=== PATIENT | female | born 1980 | race Caucasian/White ===

== ENCOUNTER 2022-08-23 09:51 | Inpatient (IN) ==
[2022-08-23] MEDS ORDERED: CEFEPIME 2,000 MG/20 ML VIAL IV STA (10:11)
[2022-08-23] MEDS ORDERED: SODIUM CHLORIDE 0.9% 1000ML 2,000 ML IV ONE (10:11)
[2022-08-23] MEDS ORDERED: ONDANSETRON INJ 2 MG/ML 2 ML VIAL IV STA (10:14)
--- NOTE | 2022-08-23 10:17 | Emergency Department Note ---
Impression & Plan Altered mental status, DKA (diabetic ketoacidosis), Hyperglycemia, Hypothermia, Acute dehydration ED Provider Note NAME: XAVI BOUCHER AGE: 41 SEX: F : 1980 ARRIVES VIA: Ambulance INFORMANT: [Patient][] ED PROVIDER(S): [Francisco Evans MD] CHIEF COMPLAINT: Altered mental state HISTORY OF PRESENT ILLNESS: The patient is a 41-year-old female with diabetes. She was in the hospital last month for DKA. She began feeling unwell about 5 days ago and then 4 days ago. She has been weak and complaining of body pain. Today she vomited and she was also noted to be confused. No fever or respiratory complaints. She is drinking water trying to stay hydrated. She is moving her urine without burning or difficulty. No diarrhea. No fever reported. The patient is a poor historian, she seems a bit confused. Her is the primary historian. In route to the hospital, she received about 3 to 400 cc of IV saline. EMS felt she was mottled. PMHx/PSHx: See Below SOCIAL HISTORY: See Below. PHYSICAL EXAM: GENERAL: Patient is in mild distress, moaning at times. Seems in pain. HEENT: No acute trauma, normocephalic atraumatic, mucous membranes dry, no nasal congestion. NECK: No stridor, no adenopathy, no meningismus, trachea is midline. LUNGS: Clear to auscultation bilaterally, no wheeze, no rhonchi, breath sounds equal. HEART: Without murmurs gallops or rubs, regular rate and rhythm. ABDOMEN: Soft, nontender, bowel sounds positive, no peritonitis. EXTREMITIES: No cyanosis or edema, full range of motion of all the joints without pain or difficulty, no signs for acute trauma. NEUROLOGIC: Moving all extremities, follows commands, somewhat confused. SKIN: No rash, no jaundice, no diaphoresis. There is skin mottling on her knees and lower extremities noted. Skin is cool to the touch. DIFFERENTIAL DIAGNOSIS: Sepsis or bacteremia, DKA, dehydration, renal or liver failure, intracranial bleeding, UTI, medication reaction/overdose, among others. EMERGENCY DEPARTMENT COURSE/PROCEDURES: Prior/Outside records reviewed: EMS notes. Critical Care Note: I have personally spent 51 minutes of critical care time in the direct management of this patient. This includes bedside care, interpretation of diagnostic studies, and testing, discussion with consultants, patient, and family members, and other required patient management activities. This 51 minutes is in excess of all separately billable procedures. MEDICAL DECISION MAKING: There is a moderate leukocytosis, this would be consistent with infection or the stress of her presentation. There is a normal hemoglobin. Platelet count slightly elevated. No coagulopathy. VBG does show an acidosis with a pH less than 7. Renal panel testing shows a low CO2 consistent with the acidosis. Sodium was low. Potassium was normal. Glucose was elevated at around 300. Lactic acid level was not elevated making severe sepsis less likely. No concerning liver enzyme elevation. Cardiac enzyme testing x1 was not consistent with acute cardiac injury. Procalcitonin level was not elevated making serious bacterial infection less likely. Urinalysis showed 4+ ketones. No infection. Urine tox was positive for ecstasy-this positive finding may actually be a contaminant from her psychiatric meds. COVID test returned negative. Chest film did not show pneumonia or CHF per my review. Brain CT showed no acute bleed or mass effect. On exam, the patient was confused, hypothermic. She had mottling of her skin. Her skin was cool to the touch. The patient was aggressively managed. She by work-up appeared to be in DKA. The patient was given 2 L of IV saline. She was placed on maintenance fluids with potassium. She received IV Zofran for nausea. She was placed on an insulin drip. She received IV cefepime for empiric antibiotic coverage. I spoke with the patient and the patient's . Hospitalization is clearly indicated. Patient does appear to be in DKA, this has led to her acidosis and confusion. The patient was placed on the Mike hugger to help with the hypothermia. I did speak with the case management team, the on-call hospitalist was counseled. The patient is going to be admitted to the ICU given the extent of the acidosis. DISPOSITION: Patient's presentation and findings warrant a hospital stay. Past Med/Surg History Medical History Anxiety Bipolar 2 disorder Chronic pain History of tobacco abuse HTN (hypertension) T2DM (type 2 diabetes mellitus) Surgical History No pertinent past surgical history Family History Other Family history unobtainable Social History Smoking Status: Former smoker Hx Alcohol Use: No Hx Substance Use: Yes Non-Prescribed Medications: Marijuana Substance Use Type Other:: occasional Preferred Language: Malay Communication Ability: Impaired [employer] Required: No Beliefs That Will Affect Care: None marital status: Current Living Situation: Spouse Other Information That Helps Us Care for You: No Feels Safe at Home: Yes Safety Concerns: Feels Safe At This Time Assistive Devices: Other Assistive Devices Comment: Glasses at home Allergies Allergies Allergy/AdvReac Type Severity Reaction Status Date / Time No Known Allergies Allergy Unverified 08/23/22 15:41 Home Meds Home Medications Medication Instructions Recorded Confirmed atomoxetine 100 mg capsule 100 mg PO DAILY 08/23/22 08/23/22 atorvastatin 20 mg tablet 20 mg PO DAILY 08/23/22 08/23/22 bupropion HCl 200 mg tablet,12 hr 200 mg PO DAILY 08/23/22 08/23/22 sustained-release dulaglutide 3 mg/0.5 mL 3 mg subcut WK 08/23/22 08/23/22 subcutaneous pen injector (Trulicity) empagliflozin 25 mg tablet 25 mg PO DAILY 08/23/22 08/23/22 (Jardiance) glimepiride 2 mg tablet 2 mg PO DAILY 08/23/22 08/23/22 lamotrigine 200 mg tablet 200 mg PO DAILY 08/23/22 08/23/22 levonorgestrel 0.15 mg-ethinyl 1 tab PO DAILY 08/23/22 08/23/22 estradiol 0.03 mg tablet ([place] (28)) sertraline 100 mg tablet 300 mg PO DAILY 08/23/22 08/23/22 Results & Data (ED) Vital Signs Vital Signs - 24 hr 08/23/22 10:20 08/23/22 10:11 08/23/22 09:58 Temperature 34.8 C L Temperature Source Rectal Pulse Rate 98 H 102 H 100 H Pulse Rate from SpO2 Sensor 102 H Respiratory Rate 26 H 16 Respiratory Effort / Characteristics Non-Labored Spontaneous Respiratory Depth Normal Blood Pressure 106/56 L Blood Pressure Mean 72 Pulse Oximetry 99 72 L Oxygen Delivery Method Room Air Sepsis Recent Fever Within 48 Hours No Sepsis New/Unexplained Change in Mental Status No Sepsis Action Taken by Nursing Physician Notified 08/23/22 10:00 08/23/22 10:17 08/23/22 10:17 Temperature Temperature Source Pulse Rate 101 H 99 H Pulse Rate from SpO2 Sensor 100 H 99 H Respiratory Rate 14 17 Respiratory Effort / Characteristics Respiratory Depth Blood Pressure 86/65 L Blood Pressure Mean 68 Pulse Oximetry 100 100 Oxygen Delivery Method Sepsis Recent Fever Within 48 Hours Sepsis New/Unexplained Change in Mental Status Sepsis Action Taken by Nursing 08/23/22 10:23 08/23/22 10:23 08/23/22 10:30 Temperature Temperature Source Pulse Rate 100 H Pulse Rate from SpO2 Sensor 100 H Respiratory Rate 16 Respiratory Effort / Characteristics Respiratory Depth Blood Pressure 97/58 L 96/74 L Blood Pressure Mean 82 76 Pulse Oximetry 100 Oxygen Delivery Method Sepsis Recent Fever Within 48 Hours Sepsis New/Unexplained Change in Mental Status Sepsis Action Taken by Nursing 08/23/22 10:30 08/23/22 11:00 08/23/22 11:00 Temperature Temperature Source Pulse Rate 99 H 103 H Pulse Rate from SpO2 Sensor 99 H 103 H Respiratory Rate 24 23 Respiratory Effort / Characteristics Respiratory Depth Blood Pressure 115/73 Blood Pressure Mean 103 Pulse Oximetry 100 100 Oxygen Delivery Method Sepsis Recent Fever Within 48 Hours Sepsis New/Unexplained Change in Mental Status Sepsis Action Taken by Nursing 08/23/22 11:15 08/23/22 11:15 08/23/22 11:30 Temperature Temperature Source Pulse Rate 102 H Pulse Rate from SpO2 Sensor 102 H Respiratory Rate 16 Respiratory Effort / Characteristics Respiratory Depth Blood Pressure 106/64 98/73 L Blood Pressure Mean 74 85 Pulse Oximetry 100 Oxygen Delivery Method Sepsis Recent Fever Within 48 Hours Sepsis New/Unexplained Change in Mental Status Sepsis Action Taken by Nursing 08/23/22 11:30 08/23/22 10:36 Temperature Temperature Source Pulse Rate 106 H Pulse Rate from SpO2 Sensor 106 H Respiratory Rate 16 Respiratory Effort / Characteristics Respiratory Depth Blood Pressure Blood Pressure Mean Pulse Oximetry 100 98 Oxygen Delivery Method Room Air Sepsis Recent Fever Within 48 Hours Sepsis New/Unexplained Change in Mental Status Sepsis Action Taken by Custodial Medications Current Medication List: was personally reviewed by me Laboratory Data Attestation: I reviewed the patient's lab results. 08/23/22 10:17 08/23/22 14:32 Lab Results 08/23/22 08/23/22 08/23/22 Range/Units 10:04 10:15 10:15 WBC (4.8-10.8) K/ul RBC (4.20-5.40) M/uL Hgb (12.0-16.0) g/dl Hct (37.0-47.0) % MCV (80.0-100.0) fL MCH (25.0-34.0) pg MCHC (32.0-36.0) g/dL RDW Std Deviation (36.4-46.3) fL RDW Coeff of Kishan (11.5-14.5) % Plt Count (130-400) K/uL MPV (9.4-12.4) fL Immature Gran % (Auto) % Neut % (Auto) % Lymph % (Auto) % [place] % (Auto) % Eos % (Auto) % Baso % (Auto) % Neut # (Auto) (1.40-6.50) K/uL Lymph # (Auto) (1.2-3.4) K/uL [place] # (Auto) (0.11-0.59) K/uL Eos # (Auto) (0-0.50) K/uL Baso # (Auto) (0-0.2) K/uL Immature Gran # (Auto) (0.01-0.20) K/uL PT (9.0-12.0) Seconds INR (0.9-1.1) APTT (21.0-31.0) Seconds PTT Ratio VBG pH (7.36-7.41) VBG pCO2 (38-50) mmHg VBG pO2 mmHg VBG HCO3 mmol/L VBG O2 Saturation % VBG Base Excess mEq/L Sodium (136-145) mmol/L Potassium (3.5-5.1) mmol/L Chloride (98-107) mmol/L Carbon Dioxide (21-32) mmol/L Anion Gap (3-11) BUN (6-23) mg/dl Creatinine (0.6-1.2) mg/dl Est Cr Clr Drug Dosing ml/min Est GFR ( Amer) ml/min Est GFR (Non-Af Amer) ml/min BUN/Creatinine Ratio (10-20) Glucose (70-99(Fasting)) mg/dl POC Glucose 287 H (70-99) mg/dl Lactate (0.4-2.0) mmol/L Calcium (8.6-10.3) mg/dl Magnesium (1.7-2.4) mg/dl Total Bilirubin (0.2-1.0) mg/dl Direct Bilirubin (0-0.2) mg/dl AST (13-39) U/L ALT (7-52) U/L Alkaline Phosphatase (34-104) U/L Ammonia (18-72) umol/L Troponin I High Sens (0-14) pg/ml Total Protein (6.0-8.3) gm/dl Albumin (3.4-5.0) gm/dl Procalcitonin (0-0.5) ng/ml Urine Color Yellow Urine Appearance Clear (Clear) Urine pH 6.0 (4.5-7.5) Ur Specific [place] 1.028 (1.000-1.030) Urine Protein 1+ H (Negative) Urine Glucose (UA) 3+ H (Negative) Urine Ketones 4+ H (Negative) Urine Blood Negative (Negative) Urine Nitrite Negative (Negative) Urine Bilirubin Negative (Negative) Urine Urobilinogen Negative (Negative) Ur Leukocyte Esterase Negative (Negative) Urine WBC (Auto) 1-5 (0-5) /hpf Urine RBC (Auto) 0-4 (0-4) /hpf U Hyaline Cast (Auto) 5-10 H (0-5) /lpf U Epithel Cells (Auto) >30 H (0-5) /lpf Urine Bacteria (Auto) Negative (Negative) Urine Opiates Screen Neg (Neg) Ur Methadone, Qual Neg (Neg) Urine Barbiturates Neg (Neg) Ur Phencyclidine (PCP) Neg (Neg) U Amphetamin/Meth Scrn Neg (Neg) MDMA (Ecstasy) Screen Pos H (Neg) U Benzodiazepines Scrn Neg (Neg) Ur Cocaine Metabolite Neg (Neg) U Marijuana (THC) Screen Neg (Neg) Ethyl Alcohol mg/dL (<10.0) mg/dl SARS-CoV-2, RNA, NAAT (NEGATIVE) 08/23/22 08/23/22 08/23/22 Range/Units 10:17 10:17 10:17 WBC 17.47 H (4.8-10.8) K/ul RBC 5.11 (4.20-5.40) M/uL Hgb 15.1 (12.0-16.0) g/dl Hct 44.9 (37.0-47.0) % MCV 87.9 (80.0-100.0) fL MCH 29.5 (25.0-34.0) pg MCHC 33.6 (32.0-36.0) g/dL RDW Std Deviation 45.3 (36.4-46.3) fL RDW Coeff of Kishan 14.4 (11.5-14.5) % Plt Count 450 H (130-400) K/uL MPV 9.5 (9.4-12.4) fL Immature Gran % (Auto) 1.1 % Neut % (Auto) 89.2 % Lymph % (Auto) 4.1 % [place] % (Auto) 5.3 % Eos % (Auto) 0.0 % Baso % (Auto) 0.3 % Neut # (Auto) 15.57 H (1.40-6.50) K/uL Lymph # (Auto) 0.72 L (1.2-3.4) K/uL [place] # (Auto) 0.93 H (0.11-0.59) K/uL Eos # (Auto) 0.00 (0-0.50) K/uL Baso # (Auto) 0.05 (0-0.2) K/uL Immature Gran # (Auto) 0.20 (0.01-0.20) K/uL PT (9.0-12.0) Seconds INR (0.9-1.1) APTT (21.0-31.0) Seconds PTT Ratio VBG pH (7.36-7.41) VBG pCO2 (38-50) mmHg VBG pO2 mmHg VBG HCO3 mmol/L VBG O2 Saturation % VBG Base Excess mEq/L Sodium 131 L (136-145) mmol/L Potassium 3.8 (3.5-5.1) mmol/L Chloride 102 (98-107) mmol/L Carbon Dioxide 5 L* (21-32) mmol/L Anion Gap 24 H (3-11) BUN 42 H (6-23) mg/dl Creatinine 1.14 (0.6-1.2) mg/dl Est Cr Clr Drug Dosing 57.4 ml/min Est GFR ( Amer) 69.2 ml/min Est GFR (Non-Af Amer) 59.7 ml/min BUN/Creatinine Ratio 36.8 H (10-20) Glucose 303 H* (70-99(Fasting)) mg/dl POC Glucose (70-99) mg/dl Lactate (0.4-2.0) mmol/L Calcium 11.0 H (8.6-10.3) mg/dl Magnesium 2.5 H (1.7-2.4) mg/dl Total Bilirubin 0.2 (0.2-1.0) mg/dl Direct Bilirubin 0.0 (0-0.2) mg/dl AST 10 L (13-39) U/L ALT 10 (7-52) U/L Alkaline Phosphatase 90 (34-104) U/L Ammonia (18-72) umol/L Troponin I High Sens 6.8 (0-14) pg/ml Total Protein 7.7 (6.0-8.3) gm/dl Albumin 4.2 (3.4-5.0) gm/dl Procalcitonin 0.34 (0-0.5) ng/ml Urine Color Urine Appearance (Clear) Urine pH (4.5-7.5) Ur Specific [place] (1.000-1.030) Urine Protein (Negative) Urine Glucose (UA) (Negative) Urine Ketones (Negative) Urine Blood (Negative) Urine Nitrite (Negative) Urine Bilirubin (Negative) Urine Urobilinogen (Negative) Ur Leukocyte Esterase (Negative) Urine WBC (Auto) (0-5) /hpf Urine RBC (Auto) (0-4) /hpf U Hyaline Cast (Auto) (0-5) /lpf U Epithel Cells (Auto) (0-5) /lpf Urine Bacteria (Auto) (Negative) Urine Opiates Screen (Neg) Ur Methadone, Qual (Neg) Urine Barbiturates (Neg) Ur Phencyclidine (PCP) (Neg) U Amphetamin/Meth Scrn (Neg) MDMA (Ecstasy) Screen (Neg) U Benzodiazepines Scrn (Neg) Ur Cocaine Metabolite (Neg) U Marijuana (THC) Screen (Neg) Ethyl Alcohol mg/dL (<10.0) mg/dl SARS-CoV-2, RNA, NAAT (NEGATIVE) 08/23/22 08/23/22 08/23/22 Range/Units 10:17 10:17 10:25 WBC (4.8-10.8) K/ul RBC (4.20-5.40) M/uL Hgb (12.0-16.0) g/dl Hct (37.0-47.0) % MCV (80.0-100.0) fL MCH (25.0-34.0) pg MCHC (32.0-36.0) g/dL RDW Std Deviation (36.4-46.3) fL RDW Coeff of Kishan (11.5-14.5) % Plt Count (130-400) K/uL MPV (9.4-12.4) fL Immature Gran % (Auto) % Neut % (Auto) % Lymph % (Auto) % [place] % (Auto) % Eos % (Auto) % Baso % (Auto) % Neut # (Auto) (1.40-6.50) K/uL Lymph # (Auto) (1.2-3.4) K/uL [place] # (Auto) (0.11-0.59) K/uL Eos # (Auto) (0-0.50) K/uL Baso # (Auto) (0-0.2) K/uL Immature Gran # (Auto) (0.01-0.20) K/uL PT 10.5 (9.0-12.0) Seconds INR 1.0 (0.9-1.1) APTT 27.1 (21.0-31.0) Seconds PTT Ratio 1.0 VBG pH < 7.00 L (7.36-7.41) VBG pCO2 24 L (38-50) mmHg VBG pO2 36 mmHg VBG HCO3 mmol/L VBG O2 Saturation 65.2 % VBG Base Excess mEq/L Sodium (136-145) mmol/L Potassium (3.5-5.1) mmol/L Chloride (98-107) mmol/L Carbon Dioxide (21-32) mmol/L Anion Gap (3-11) BUN (6-23) mg/dl Creatinine (0.6-1.2) mg/dl Est Cr Clr Drug Dosing ml/min Est GFR ( Amer) ml/min Est GFR (Non-Af Amer) ml/min BUN/Creatinine Ratio (10-20) Glucose (70-99(Fasting)) mg/dl POC Glucose (70-99) mg/dl Lactate (0.4-2.0) mmol/L Calcium (8.6-10.3) mg/dl Magnesium (1.7-2.4) mg/dl Total Bilirubin (0.2-1.0) mg/dl Direct Bilirubin (0-0.2) mg/dl AST (13-39) U/L ALT (7-52) U/L Alkaline Phosphatase (34-104) U/L Ammonia (18-72) umol/L Troponin I High Sens (0-14) pg/ml Total Protein (6.0-8.3) gm/dl Albumin (3.4-5.0) gm/dl Procalcitonin (0-0.5) ng/ml Urine Color Urine Appearance (Clear) Urine pH (4.5-7.5) Ur Specific [place] (1.000-1.030) Urine Protein (Negative) Urine Glucose (UA) (Negative) Urine Ketones (Negative) Urine Blood (Negative) Urine Nitrite (Negative) Urine Bilirubin (Negative) Urine Urobilinogen (Negative) Ur Leukocyte Esterase (Negative) Urine WBC (Auto) (0-5) /hpf Urine RBC (Auto) (0-4) /hpf U Hyaline Cast (Auto) (0-5) /lpf U Epithel Cells (Auto) (0-5) /lpf Urine Bacteria (Auto) (Negative) Urine Opiates Screen (Neg) Ur Methadone, Qual (Neg) Urine Barbiturates (Neg) Ur Phencyclidine (PCP) (Neg) U Amphetamin/Meth Scrn (Neg) MDMA (Ecstasy) Screen (Neg) U Benzodiazepines Scrn (Neg) Ur Cocaine Metabolite (Neg) U Marijuana (THC) Screen (Neg) Ethyl Alcohol mg/dL (<10.0) mg/dl SARS-CoV-2, RNA, NAAT NEGATIVE (NEGATIVE) 08/23/22 08/23/22 08/23/22 Range/Units 11:20 11:20 11:20 WBC (4.8-10.8) K/ul RBC (4.20-5.40) M/uL Hgb (12.0-16.0) g/dl Hct (37.0-47.0) % MCV (80.0-100.0) fL MCH (25.0-34.0) pg MCHC (32.0-36.0) g/dL RDW Std Deviation (36.4-46.3) fL RDW Coeff of Kishan (11.5-14.5) % Plt Count (130-400) K/uL MPV (9.4-12.4) fL Immature Gran % (Auto) % Neut % (Auto) % Lymph % (Auto) % [place] % (Auto) % Eos % (Auto) % Baso % (Auto) % Neut # (Auto) (1.40-6.50) K/uL Lymph # (Auto) (1.2-3.4) K/uL [place] # (Auto) (0.11-0.59) K/uL Eos # (Auto) (0-0.50) K/uL Baso # (Auto) (0-0.2) K/uL Immature Gran # (Auto) (0.01-0.20) K/uL PT (9.0-12.0) Seconds INR (0.9-1.1) APTT (21.0-31.0) Seconds PTT Ratio VBG pH (7.36-7.41) VBG pCO2 (38-50) mmHg VBG pO2 mmHg VBG HCO3 mmol/L VBG O2 Saturation % VBG Base Excess mEq/L Sodium (136-145) mmol/L Potassium (3.5-5.1) mmol/L Chloride (98-107) mmol/L Carbon Dioxide (21-32) mmol/L Anion Gap (3-11) BUN (6-23) mg/dl Creatinine (0.6-1.2) mg/dl Est Cr Clr Drug Dosing ml/min Est GFR ( Amer) ml/min Est GFR (Non-Af Amer) ml/min BUN/Creatinine Ratio (10-20) Glucose (70-99(Fasting)) mg/dl POC Glucose (70-99) mg/dl Lactate 1.3 (0.4-2.0) mmol/L Calcium (8.6-10.3) mg/dl Magnesium (1.7-2.4) mg/dl Total Bilirubin (0.2-1.0) mg/dl Direct Bilirubin (0-0.2) mg/dl AST (13-39) U/L ALT (7-52) U/L Alkaline Phosphatase (34-104) U/L Ammonia 44.0 (18-72) umol/L Troponin I High Sens (0-14) pg/ml Total Protein (6.0-8.3) gm/dl Albumin (3.4-5.0) gm/dl Procalcitonin (0-0.5) ng/ml Urine Color Urine Appearance (Clear) Urine pH (4.5-7.5) Ur Specific [place] (1.000-1.030) Urine Protein (Negative) Urine Glucose (UA) (Negative) Urine Ketones (Negative) Urine Blood (Negative) Urine Nitrite (Negative) Urine Bilirubin (Negative) Urine Urobilinogen (Negative) Ur Leukocyte Esterase (Negative) Urine WBC (Auto) (0-5) /hpf Urine RBC (Auto) (0-4) /hpf U Hyaline Cast (Auto) (0-5) /lpf U Epithel Cells (Auto) (0-5) /lpf Urine Bacteria (Auto) (Negative) Urine Opiates Screen (Neg) Ur Methadone, Qual (Neg) Urine Barbiturates (Neg) Ur Phencyclidine (PCP) (Neg) U Amphetamin/Meth Scrn (Neg) MDMA (Ecstasy) Screen (Neg) U Benzodiazepines Scrn (Neg) Ur Cocaine Metabolite (Neg) U Marijuana (THC) Screen (Neg) Ethyl Alcohol mg/dL < 10.0 (<10.0) mg/dl SARS-CoV-2, RNA, NAAT (NEGATIVE) Administered Medications Insulin Human Regular 250 (units/ Sodium Chloride) 250 mls @ 2.4 mls/hr IV .Q24 H [facility]; Protocol Stop: 09/22/22 11:14 Last Titration: 08/23/22 15:06 Dose: 2.4 units/hr, 2.4 mls/hr Documented By: [id number] Co-signed By: ALEXYS Titration: 08/23/22 14:36 Dose: 0 units/hr, 0 mls/hr Documented By: [id number] Co-signed By: ALEXYS Titration: 08/23/22 14:03 Dose: 4 units/hr, 4 mls/hr Documented By: [id number] Co-signed By: [facility] Admin: 08/23/22 12:28 Dose: 6.8 units/hr, 6.8 mls/hr Documented By: HS Co-signed By: SERA Potassium Chloride/Dextrose/Sod Cl (D5nss + 20meq Kcl) 20 meq in 1,000 mls @ 200 mls/hr IV .Q5H JASMIN Stop: 09/22/22 11:29 Last Infusion: 08/23/22 15:46 Dose: 200 mls/hr Documented By: [id number] Admin: 08/23/22 11:49 Dose: 125 mls/hr Documented By: HS Lactated Ringer's (Lr) 2,000 mls @ 999 mls/hr IV .Q2H1M ONE Stop: 08/23/22 17:22 Last Admin: 08/23/22 16:11 Dose: 999 mls/hr Documented By: [id number] Potassium Chloride (K Alan / Wtr) 10 meq in 100 mls @ 100 mls/hr IV Q1H JASMIN Stop: 08/23/22 19:59 Last Admin: 08/23/22 16:18 Dose: 100 mls/hr Documented By: [id number] Insulin Aspart (Insulin Aspart Per Unit Charge) 0 units SC ACHS [facility] Stop: 09/22/22 16:29 Last Admin: 08/23/22 16:54 Dose: Not Given Documented By: [id number] Discontinued Medications Cefepime HCl (Maxipime) 2,000 mg in 20 mls @ 5 mls/min IV NOW STA; Protocol Stop: 08/23/22 10:14 Last Admin: 08/23/22 11:17 Dose: 5 mls/min Documented By: HS Sodium Chloride (Nss 1000ml) 2,000 mls @ 999 mls/hr IV .Q2H1M ONE Stop: 08/23/22 12:11 Last Infusion: 08/23/22 14:01 Dose: 0 mls/hr Documented By: [id number] Admin: 08/23/22 10:31 Dose: 999 mls/hr Documented By: HS Insulin Aspart (Insulin Aspart Per Unit Charge) 0 units SC ACHS JASMIN Stop: 09/22/22 11:29 Last Admin: 08/23/22 13:59 Dose: Not Given Documented By: [id number] Insulin Human Regular (Novolin-R Bolus From Bag) 6 units IV ONE ONE Stop: 08/23/22 11:31 Last Admin: 08/23/22 12:28 Dose: 6 units Documented By: HS Co-signed By: SERA Miscellaneous (Dka Goal Range 150-250 Mg/Dl) 1 each N/A ONE ONE Stop: 08/23/22 11:16 Last Admin: 08/23/22 13:59 Dose: 1 each Documented By: [id number] Ondansetron HCl (Ondansetron Inj 2 Mg/Ml 2 Ml Vial) 4 mg IV NOW STA Stop: 08/23/22 10:15 Last Admin: 08/23/22 11:17 Dose: 4 mg Documented By: JOANNE Sodium Bicarbonate (Sodium Bicarb 8.4% Inj 50 Meq/50 Ml Syr) 50 meq IV NOW STA Stop: 08/23/22 12:54 Last Admin: 08/23/22 13:09 Dose: 50 meq Documented By: JOANNE Imaging Data Radiologist's Impression: Chest X-Ray 08/23/22 10:11 XR chest 1V portable HISTORY: 41 years-old Female Sepsis acute sepsis COMPARISON: None TECHNIQUE: AP view of the chest FINDINGS: Mild right hemidiaphragmatic elevation. Cardiomediastinal and hilar silhouettes are within normal limits. No pneumothorax, pleural effusion, airspace consolidation or pulmonary edema. Bones appear grossly intact. IMPRESSION: No acute process. ACT 112: Negative or not required by law. The above report was generated using voice recognition software. It may contain grammatical, syntax or spelling errors. Electronically signed by: Louie Ayala M.D. 08/23/2022 10:[address] 08/23/22 10:14 CT head/brain wo con CLINICAL HISTORY: 41 years-old Female with altered. Acutely altered mental status TECHNIQUE: Multiple axial CT images of the head were obtained without contrast. A dose lowering technique was utilized adhering to the principles of ALARA. CT DOSE: 625.80 mGy.cm COMPARISON: None. FINDINGS: No acute intracranial hemorrhage, midline shift, intracranial mass, hydrocephalus, territorial ischemia or abnormal extra-axial collection. The calvarium is intact. The paranasal sinuses, mastoid air cells, and middle ear cavities are clear. IMPRESSION: No acute intracranial abnormality. ACT 112: Negative or not required by law. The above report was generated using voice recognition software. It may contain grammatical, syntax or spelling errors. Electronically signed by: Louie Ayala M.D. 08/23/2022 1:37 PM Discharge Plan Visit Data Chief Complaint: Confusion Stated Complaint: LETHARGIC ED Provider: Francisco Evans Discharge Problem: Altered mental status, DKA (diabetic ketoacidosis), Hyperglycemia, Hypothermia, Acute dehydration Patient Disposition: Admitted As Inpatient Condition: Serious Discharge Instructions Interventions: ED Discharge Assessment Last Done: 08/23/22 13:56
[2022-08-23 10:42] LABS: Oxygen Saturation VBG 65.2 %; PCO2 VBG 24 mmHg (38-50); PO2 VBG 36 mmHg; pH VBG < 7.00 (7.36-7.41)
[2022-08-23 10:50] LABS: Appearance Urine Clear (Clear); Bacteria Urine Automated Negative (Negative); Bilirubin Urine Negative (Negative); Blood Urine Negative (Negative); Color Urine Yellow; Epithelial Cell Urine Auto >30 /lpf (0-5); Glucose Urine UA 3+ (Negative); Ketones Urine 4+ (Negative); Leukocyte Esterase Urine Negative (Negative); Nitrite Urine Negative (Negative); Protein Urine 1+ (Negative); RBC Urine Automated 0-4 /hpf (0-4); Specific Gravity Urine 1.028 (1.000-1.030); Urobilinogen Urine Negative (Negative)
--- NOTE | 2022-08-23 10:51 | XRay Report ---
XR chest 1V portable HISTORY: 41 years-old Female Sepsis acute sepsis COMPARISON: None TECHNIQUE: AP view of the chest FINDINGS: Mild right hemidiaphragmatic elevation. Cardiomediastinal and hilar silhouettes are within normal joy its. No pneumothorax, pleural effusion, airspace consolidation or pulmonary edema. Bones appear gross ly intact. IMPRESSION: No acute process. ACT 112: Negative or not required by law. The above report was generated using voice recognition software. It may contain grammatical, syntax o r spelling errors. Electronically signed by: Louie Ayala M.D. 08/23/2022 10:50 AM
[2022-08-23 10:52] LABS: Basophils # (auto) 0.05 K/uL (0-0.2); Basophils % (auto) 0.3 %; Hematocrit (blood only) 44.9 % (37.0-47.0); Hemoglobin 15.1 g/dl (12.0-16.0); Immature Granulocytes % (auto) 1.1 %; Lymphocytes # (auto) 0.72 K/uL (1.2-3.4); Lymphocytes % (auto) 4.1 %; Mean Corpuscular Hemoglobin 29.5 pg (25.0-34.0); Mean Corpuscular Hgb Conc 33.6 g/dL (32.0-36.0); Mean Corpuscular Volume 87.9 fL (80.0-100.0); Mean Platelet Volume 9.5 fL (9.4-12.4); Monocytes # (auto) 0.93 K/uL (0.11-0.59); Monocytes % (auto) 5.3 %; Neutrophils # (auto) 15.57 K/uL (1.40-6.50); Neutrophils % (auto) 89.2 %; Platelet Count 450 K/uL (130-400); RDW Coefficient of Variation 14.4 % (11.5-14.5); RDW Standard Deviation 45.3 fL (36.4-46.3); Red Blood Count 5.11 M/uL (4.20-5.40); White Blood Count 17.47 K/ul (4.8-10.8)
[2022-08-23 11:14] LABS: Albumin Level 4.2 gm/dl (3.4-5.0); BUN Creatinine Ratio 36.8 (10-20); Bilirubin,Total 0.2 mg/dl (0.2-1.0); Creatinine Clr Calc Pharmacy 57.4 ml/min; Est GFR (African American) 69.2 ml/min; Est GFR (Non-African American) 59.7 ml/min; Magnesium 2.5 mg/dl (1.7-2.4); Potassium 3.8 mmol/L (3.5-5.1); Total Protein 7.7 gm/dl (6.0-8.3); Troponin I High Sensitivity 6.8 pg/ml (0-14)
[2022-08-23] MEDS ORDERED: DKA GOAL RANGE 150-250 mg/dl ONE (11:15)
[2022-08-23] MEDS ORDERED: GLUCOSE 10 TAB/TUBE PO PRN (11:15)
[2022-08-23] MEDS ORDERED: CARBOHYDRATES FOR HYPOGLYCEMIA PO PRN (11:15)
[2022-08-23] MEDS ORDERED: STAT INSULIN DRIP STA (11:15)
[2022-08-23] MEDS ORDERED: GLUCAGON FOR INJ 1 MG VIAL SQ PRN (11:15)
[2022-08-23] MEDS ORDERED: GLUCOSE 40% GEL 15 GM TUBE PO PRN (11:15)
[2022-08-23] MEDS ORDERED: DEXTROSE 50% 50 ML SYRINGE IV PRN (11:15)
[2022-08-23] MEDS ORDERED: NovoLIN-R BOLUS FROM BAG IV ONE (11:30)
[2022-08-23] MEDS ORDERED: INSULIN ASPART PER UNIT CHARGE SC SCH ×2 (11:30→16:30)
[2022-08-23 11:35] LABS: Partial Thromboplastin Time 27.1 Seconds (21.0-31.0); Prothrombin Time 10.5 Seconds (9.0-12.0)
[2022-08-23] MEDS: D5NSS + 20MEQ KCL 20 MEQ/1,000 ML BAG IV SCH ×2 (11:49→19:55)
[2022-08-23 11:56] LABS: Amphetamines+Metham, Urine Neg (Neg); Barbiturates, Urine Neg (Neg); Benzodiazepine, Urine Neg (Neg); Cocaine, Urine Neg (Neg); MDMA (Ecstacy), Urine Pos (Neg); Methadone, Urine Neg (Neg); Opiate, Urine Neg (Neg); Phencyclidine, Urine Neg (Neg)
[2022-08-23] MEDS: INSULIN REGULAR 250 UNITS in SODIUM CHLORIDE 0.9% 247.5 ML IV SCH (12:28)
--- NOTE | 2022-08-23 12:34 | Critical Care Consultation ---
Date of Consultation August 23, 2022 Assessment & Plan (1) DKA (diabetic ketoacidosis): (2) Dehydration: (3) High anion gap metabolic acidosis: (4) Acute metabolic encephalopathy: (5) HTN (hypertension): (6) Anxiety: (7) Bipolar 2 disorder: (8) T2DM (type 2 diabetes mellitus): Plan Reason Critically Ill: 41-year-old female with a significant history of type 2 diabetes who presents to the emergency department with altered mental status and general weakness and fatigue with findings consistent with acute DKA and severe dehydration. This is in the setting of metabolic encephalopathy likely from acuity of illness in the setting of DKA. NEURO - * CAM ICU: POSITIVE * Altered mental status: * Likely representing metabolic encephalopathy in the setting of profound DKA and significant acidosis. * CT head unremarkable * Continue to monitor for improvement of mental status with correction of underlying illness. CARDIAC/VASCULAR - * Tachycardia: * Again, secondary to DKA and acidosis. * Hypertension: * Avoid patient's home antihypertensives at this time given her softer blood pressures currently * Monitor on telemetry. RESPIRATORY - * Tachypnea: * Likely representing regional sales coordinator small respirations in the patient with profound DKA. * Monitor for improvement with correction of underlying conditions. GI/NUTRITION - * N.p.o. while correcting DKA/acidosis * Prophylaxis: Famotidine RENAL/LYTES - * High anion gap metabolic acidosis: * Likely secondary to DKA. * Continue to trend serial VBGs. * Did provide a one-time dose of sodium bicarb and intravenously given her profound acidosis of 7. * Would avoid bicarbonate containing fluids if possible, however patient may be beneficial of spot dosing if necessary. * Continue to correct potassium as needed * IVF: Currently on D5 half-normal and 20 of K at a rate of 200 mL per hour. * Fluid management to be adjusted based on patient's electrolyte changes. - * Flores in place - Strict I&Os. ENDO - * DKA: * BSGs per unit protocol. ISS --> gtt per unit policy. * Patient correcting relatively rapidly with insulin. Question if the patient has degree of euglycemic DKA in the setting of Jardiance use. HEME - * Stable H&H ID - * Patient with slight white count likely healthcare representative stress response. Lactate is not elevated. Procalcitonin not elevated. * Less likely healthcare representative of underlying bacterial infection LINES/IV ACCESS - * PIVs x2 * Flores cath DVT PROPHYLAXIS - * Lovenox * SCDs I have personally spent 55 minutes of critical care time in the direct management of this patient. This is a life/limb threatening event. This includes time spent evaluating patient, direct bedside care, chart review, placing orders, interpretation of diagnostic studies, discussion with consultants, patient, and family members, as well as other required patient management activities. This time is exclusive of all separately billable procedures, and teaching time and separate from and in addition to any other critical care service time. Thank you for allowing us to participate in the care of this patient. Please refer to my attending physician's documentation for any further recommendations. History of Present Illness Reason for Consultation: DKA, AMS Requesting Physician: Lilly Novoa PA-C Attending Physician: Dr. Garner History of Present Illness Patient is a 42-year-old female with a significant past medical history of type 2 diabetes, bipolar disorder, anxiety, hypertension, and tobacco abuse who presents to the emergency department with complaints of altered mental status and generalized fatigue and weakness. The patient had a recent admission at [facility] approximately 1 month ago for DKA. Her is concerned as this is how she presented similarly. He reports that she did report feeling ill starting on Sunday and has had some occasional vomiting. He is uncertain of if she has had increasing urinary frequency. She did have follow-up with her primary care provider since her hospitalization and there has been changes to her medications. Otherwise, the patient is unable to provide historical information secondary to altered mental status. is present at bedside. He adamantly denies that the patient has utilize any illicit drugs. She occasionally uses marijuana. He denies any alcohol abuse. He reports no suicidal ideation or recent overdose attempts. Home Medications Medication Instructions Recorded Confirmed Type atomoxetine 100 mg capsule 100 mg PO DAILY 08/23/22 08/23/22 History atorvastatin 20 mg tablet 20 mg PO DAILY 08/23/22 08/23/22 History bupropion HCl 200 mg tablet,12 hr 200 mg PO DAILY 08/23/22 08/23/22 History sustained-release dulaglutide 3 mg/0.5 mL 3 mg subcut WK 08/23/22 08/23/22 History subcutaneous pen injector (Trulicity) empagliflozin 25 mg tablet 25 mg PO DAILY 08/23/22 08/23/22 History (Jardiance) glimepiride 2 mg tablet 2 mg PO DAILY 08/23/22 08/23/22 History lamotrigine 200 mg tablet 200 mg PO DAILY 08/23/22 08/23/22 History levonorgestrel 0.15 mg-ethinyl 1 tab PO DAILY 08/23/22 08/23/22 History estradiol 0.03 mg tablet (Altavera (28)) sertraline 100 mg tablet 300 mg PO DAILY 08/23/22 08/23/22 History Patient History Medical History Anxiety Bipolar 2 disorder Chronic pain History of tobacco abuse HTN (hypertension) T2DM (type 2 diabetes mellitus) Surgical History No pertinent past surgical history Family History Other Family history unobtainable Social History Smoking Status: Former smoker Hx Alcohol Use: No Hx Substance Use: Yes Non-Prescribed Medications: Marijuana Preferred Language: Hungarian Communication Ability: Unable marital status: Feels Safe at Home: Yes Review of Systems Review of Systems: A complete 10 point review of systems was reviewed with the patient with pertinent positives and negatives as per history of present illness. All else were negative. Physical Exam Physical Exam: VITAL SIGNS - Vital signs and nursing notes were reviewed. GENERAL - 41-year-old female appearing her stated age who is in mild respiratory distress. Altered. SKIN - Without rashes. HEAD - NC/AT. EYES - PERRL with EOMI bilaterally. Sclera anicteric. EARS - No deformities of external structures noted on gross examination bilaterally. NOSE - Midline and without cyanosis. No epistaxis or purulent drainage noted. MOUTH/OROPHARYNX - Without perioral cyanosis. Buccal mucosa pink and dry. NECK - Neck with FROM. No nuchal rigidity. LUNGS - Kussmaul respirations noted. Normal vesicular breath sounds CTA B/L. No wheezes, rales, or rhonchi appreciated. CARDIAC - RRR with S1/S2. No murmur, rubs, or gallops appreciated. ABDOMEN - Abdominal contour obese without pulsations or visible masses. BS normoactive all four quadrants. No tenderness, palpable masses, hepatosplenomegaly, or ascites noted. EXTREMITIES - No clubbing or peripheral cyanosis. No pretibial edema present. +3/5 radial and dorsalis pedis pulses palpated throughout. NEUROLOGIC -no focal neurological deficits noted. Limited exam secondary to altered mental status. Results & Data Results & Data Vital Signs (Past 12 Hours) Vital Signs Temp Pulse Resp BP Pulse Ox O2 Del Method 08/23/22 10:36 98 Room Air 08/23/22 11:30 106 H 16 100 08/23/22 11:30 98/73 L 08/23/22 11:15 102 H 16 100 08/23/22 11:15 106/64 08/23/22 11:00 103 H 23 100 08/23/22 11:00 115/73 08/23/22 10:30 99 H 24 100 08/23/22 10:30 96/74 L 08/23/22 10:23 100 H 16 100 08/23/22 10:23 97/58 L 08/23/22 10:17 99 H 17 100 08/23/22 10:17 86/65 L 08/23/22 10:00 101 H 14 100 08/23/22 09:58 100 H 16 72 L 08/23/22 10:11 34.8 C L 102 H 26 H 106/56 L 99 Room Air 08/23/22 10:20 98 H Coding Level of Care Code 48097 CRITICAL CARE 1ST 30-74M Diagnoses DKA (diabetic ketoacidosis) E11.10 Dehydration E86.0 High anion gap metabolic acidosis E87.29 Acute metabolic encephalopathy G93.41 HTN (hypertension) I10 Anxiety F41.9 Bipolar 2 disorder F31.81 T2DM (type 2 diabetes mellitus) E11.9 Time Spent (min) 55
[2022-08-23 12:45] LABS: Base Excess ABG -26.2 mEq/L (-9-1.8); HCO3 ABG 3 mmol/L (19-24); Oxygen Saturation ABG 99.8 % (90-95); PCO2 ABG 11 mmHg (35-46); PO2 ABG 136 mmHg (80-95)
[2022-08-23 12:47] LABS: Allen Test Pos (Pos)
[2022-08-23 12:53] LABS: pH ABG 7.02 (7.35-7.45)
[2022-08-23] MEDS ORDERED: SODIUM BICARB 8.4% INJ 50 MEQ/50 ML SYR IV STA (12:53)
--- NOTE | 2022-08-23 13:14 | History & Physical Report ---
Date of Service August 23, 2022 Assessment & Plan (1) Acute metabolic encephalopathy: (2) DKA (diabetic ketoacidosis): (3) High anion gap metabolic acidosis: (4) Dehydration: Plan This is a 41-year-old female with significant past medical history of T2DM, HTN, chronic pain syndrome, bipolar 2 disorder, tobacco use who presents to ED with altered mental status. Acute metabolic encephalopathy DKA High anion gap metabolic acidosis Hypothermia Dehydration Patient is currently being admitted to the ICU and will be under the care of secured entrance monitor Patient was seen at bedside with Jefferson Grant PA-C of critical care Patient will continue on insulin drip, IV fluid with KCl, pending fluid to include dextrose when glucose reaches goal range Serial labs We will defer further treatment antibiotics to secured entrance monitor team continue bear chip DVT prophylaxis: Lovenox Dispo: To ICU for critical management of DKA with severe metabolic acidosis and hypothermia PCP: True Gibson Full code, confirmed with at bedside Pt was seen and examined in collaboration with Dr. Garner, please see addendum Pt is on Jardiance, consider discontinuing at discharge as this is patients second episode of DKA in last month. History of Present Illness Chief Complaint: Altered mental status. Primary Care Provider: Damaris Jeffers MD This is a 41-year-old female with significant past medical history of T2DM, HTN, chronic pain syndrome, bipolar 2 disorder, tobacco use who presents to ED with altered mental status. History unobtainable from patient due to cognition. is at bedside and states approximately 1 month ago she was admitted to [facility] in the ICU for DKA. At that time symptoms started abruptly with vomiting, weakness, ill feeling and patient then developed altered mental status. At that point time he was discharged on insulin. Her A1c during hospitalization was 8.2. According to hospital follow-up patient was unable to get coverage for insulin and therefore did not pick it up. She also apparently has been having difficulty with oral intake. She followed up with PCP who recommended discontinuing insulin and continuing her oral regiment of Jardiance, glipizide and Trulicity. EPIC records reviewed. She follows with [facility] pharmacy for glycemic management. Allergies Allergy/AdvReac Type Severity Reaction Status Date / Time No Known Allergies Allergy Unverified 08/23/22 15:41 Home Medications Medication Instructions Recorded Confirmed Type atomoxetine 100 mg capsule 100 mg PO DAILY 08/23/22 08/23/22 History atorvastatin 20 mg tablet 20 mg PO DAILY 08/23/22 08/23/22 History bupropion HCl 200 mg tablet,12 hr 200 mg PO DAILY 08/23/22 08/23/22 History sustained-release dulaglutide 3 mg/0.5 mL 3 mg subcut WK 08/23/22 08/23/22 History subcutaneous pen injector (Trulicity) empagliflozin 25 mg tablet 25 mg PO DAILY 08/23/22 08/23/22 History (Jardiance) glimepiride 2 mg tablet 2 mg PO DAILY 08/23/22 08/23/22 History lamotrigine 200 mg tablet 200 mg PO DAILY 08/23/22 08/23/22 History levonorgestrel 0.15 mg-ethinyl 1 tab PO DAILY 08/23/22 08/23/22 History estradiol 0.03 mg tablet (Altavera (28)) sertraline 100 mg tablet 300 mg PO DAILY 08/23/22 08/23/22 History Past Med/Surg History Medical History Anxiety Bipolar 2 disorder Chronic pain History of tobacco abuse HTN (hypertension) T2DM (type 2 diabetes mellitus) Surgical History No pertinent past surgical history Family History Other Family history unobtainable Social History Smoking Status: Former smoker Hx Alcohol Use: No Hx Substance Use: Yes Non-Prescribed Medications: Marijuana Substance Use Type Other:: occasional Preferred Language: Lithuanian Communication Ability: Impaired Pin Machine Tender Required: No Beliefs That Will Affect Care: None marital status: Current Living Situation: Spouse Other Information That Helps Us Care for You: No Feels Safe at Home: Yes Safety Concerns: Feels Safe At This Time Assistive Devices: Other Assistive Devices Comment: Glasses at home Review of Systems Review of Systems: Unobtainable due to cognitive status Physical Exam Physical Exam: please refer to Dr. Garner addendum for physical exam findings Results & Data Results & Data Vital Signs (Past 12 Hours) Vital Signs Temp Pulse Resp BP Pulse Ox O2 Del Method 08/23/22 10:36 98 Room Air 08/23/22 11:30 106 H 16 100 08/23/22 11:30 98/73 L 08/23/22 11:15 102 H 16 100 08/23/22 11:15 106/64 08/23/22 11:00 103 H 23 100 08/23/22 11:00 115/73 08/23/22 10:30 99 H 24 100 08/23/22 10:30 96/74 L 08/23/22 10:23 100 H 16 100 08/23/22 10:23 97/58 L 08/23/22 10:17 99 H 17 100 08/23/22 10:17 86/65 L 08/23/22 10:00 101 H 14 100 08/23/22 09:58 100 H 16 72 L 08/23/22 10:11 34.8 C L 102 H 26 H 106/56 L 99 Room Air 08/23/22 10:20 98 H Diagnostic Findings Chest X-Ray 08/23/22 10:11 XR chest 1V portable HISTORY: 41 years-old Female Sepsis acute sepsis COMPARISON: None TECHNIQUE: AP view of the chest FINDINGS: Mild right hemidiaphragmatic elevation. Cardiomediastinal and hilar silhouettes are within normal limits. No pneumothorax, pleural effusion, airspace consolidation or pulmonary edema. Bones appear grossly intact. IMPRESSION: No acute process. ACT 112: Negative or not required by law. The above report was generated using voice recognition software. It may contain grammatical, syntax or spelling errors. Electronically signed by: Louie Ayala M.D. 08/23/2022 10:50 AM Medications Administered Medication List Insulin Human Regular 250 (units/ Sodium Chloride) 250 mls @ 6.8 mls/hr IV .Q24H [facility]; Protocol Stop: 09/22/22 11:14 Last Admin: 08/23/22 12:28 Dose: 6.8 units/hr, 6.8 mls/hr Documented By: HS Co-signed By: SERA Potassium Chloride/Dextrose/Sod Cl (D5nss + 20meq Kcl) 20 meq in 1,000 mls @ 125 mls/hr IV .Q8H JASMIN Stop: 09/22/22 11:29 Last Admin: 08/23/22 11:49 Dose: 125 mls/hr Documented By: HS Discontinued Medications Cefepime HCl (Maxipime) 2,000 mg in 20 mls @ 5 mls/min IV NOW STA; Protocol Stop: 08/23/22 10:14 Last Admin: 08/23/22 11:17 Dose: 5 mls/min Documented By: HS Sodium Chloride (Nss 1000ml) 2,000 mls @ 999 mls/hr IV .Q2H1M ONE Stop: 08/23/22 12:11 Last Admin: 08/23/22 10:31 Dose: 999 mls/hr Documented By: HS Insulin Human Regular (Novolin-R Bolus From Bag) 6 units IV ONE ONE Stop: 08/23/22 11:31 Last Admin: 08/23/22 12:28 Dose: 6 units Documented By: HS Co-signed By: SERA Ondansetron HCl (Ondansetron Inj 2 Mg/Ml 2 Ml Vial) 4 mg IV NOW STA Stop: 08/23/22 10:15 Last Admin: 08/23/22 11:17 Dose: 4 mg Documented By: HS COVID-19 Results Results COVID-19 Adm Lab Results: RBC 5.11 M/uL (4.20-5.40) 08/23/22 WBC 17.47 K/ul (4.8-10.8) H 08/23/22 Hgb 15.1 g/dl (12.0-16.0) 08/23/22 Hct 44.9 % (37.0-47.0) 08/23/22 Plt Count 450 K/uL (130-400) H 08/23/22 Neutrophils (%) (Auto) 89.2 % 08/23/22 Lymphocytes (%) (Auto) 4.1 % 08/23/22 Monocytes # (Auto) 0.93 K/uL (0.11-0.59) H 08/23/22 Eosinophils # (Auto) 0.00 K/uL (0-0.50) 08/23/22 Immature Granulocyte % (Auto) 1.1 % 08/23/22 Neutrophils # (Auto) 15.57 K/uL (1.40-6.50) H 08/23/22 Lymphocytes # (Auto) 0.72 K/uL (1.2-3.4) L 08/23/22 Monocytes # (Auto) 0.93 K/uL (0.11-0.59) H 08/23/22 Eosinophils # (Auto) 0.00 K/uL (0-0.50) 08/23/22 Basophils # (Auto) 0.05 K/uL (0-0.2) 08/23/22 Immature Granulocyte # (Auto) 0.20 K/uL (0.01-0.20) 3 Na 137 mmol/L (136-145) 08/23/22 K 3.4 mmol/L (3.5-5.1) L 08/23/22 Cl 110 mmol/L (98-107) H 08/23/22 CO2 7 mmol/L (21-32) L* 08/23/22 Anion Gap 20 (3-11) H 08/23/22 BUN 40 mg/dl (6-23) H 08/23/22 Creatinine 0.93 mg/dl (0.6-1.2) 08/23/22 BUN/Creatinine Ratio 43.0 (10-20) H 08/23/22 Glucose Level 182 mg/dl (70-99(Fasting)) H 08/23/22 Ca 10.0 mg/dl (8.6-10.3) 08/23/22 Phosphorus Level 2.5 mg/dl (2.5-4.9) 08/23/22 Total Bilirubin 0.2 mg/dl (0.2-1.0) 08/23/22 Direct Bilirubin 0.0 mg/dl (0-0.2) 08/23/22 AST/SGOT 10 U/L (13-39) L 08/23/22 ALT/SGPT 10 U/L (7-52) 08/23/22 Alkaline Phosphatase 90 U/L (34-104) 08/23/22 Total Protein 7.7 gm/dl (6.0-8.3) 08/23/22 Albumin 4.2 gm/dl (3.4-5.0) 08/23/22 Procalcitonin 0.34 ng/ml (0-0.5) 08/23/22 PTT 27.1 Seconds (21.0-31.0) 08/23/22 INR 1.0 (0.9-1.1) 08/23/22 SARS-CoV-2, RNA, NAAT NEGATIVE (NEGATIVE) 08/23/22 ABG pH 7.02 (7.35-7.45) L* 08/23/22 ABG pCO2 11 mmHg (35-46) L 08/23/22 ABG pO2 136 mmHg (80-95) H 08/23/22 ABG HCO3 3 mmol/L (19-24) L 08/23/22 ABG O2 Saturation 99.8 % (90-95) H 08/23/22 ABG Base Excess -26.2 mEq/L (-9-1.8) L 08/23/22 Chest X-Ray 08/23/22 Code Status & VTE Plan Code Status FULL CODE VTE Prophylaxis Plan VTE Prophylaxis will be ordered: Yes Supervising Physician Co-Signing Physician Notes concerns about Jardiance causing normoglycemic diabetic keto acidosis. would recommend long acting insulin at time of discharge 41 year with altered mental status Acute metabolic encephalopathy DKA exam HEENT:No JVD , Normocephalic , atraumatic CV: S1/S2+ , no murmurs Resp: Air entry present bilaterally.no crackles, no wheeze . GI: Abdomen soft non tender . Musculoskeletal: examined for joint tenderness. right knee pain + Skin: petechiaes lower extremety Psych: Normal affect Neuro: altered mental status. Patient is awake , not alert, did not know where she, said her name . able to move her extremeties Ext: no edema. Patient to be managed in ICU
--- NOTE | 2022-08-23 13:38 | CT Scan Report ---
CT head/brain wo con CLINICAL HISTORY: 41 years-old Female with altered. Acutely altered mental status TECHNIQUE: Multiple axial CT images of the head were obtained without contrast. A dose lowering tech nique was utilized adhering to the principles of ALARA. CT DOSE: 625.80 mGy.cm COMPARISON: None. FINDINGS: No acute intracranial hemorrhage, midline shift, intracranial mass, hydrocephalus, territorial ischem ia or abnormal extra-axial collection. The calvarium is intact. The paranasal sinuses, mastoid air cells, and middle ear cavities are clear . IMPRESSION: No acute intracranial abnormality. ACT 112: Negative or not required by law. The above report was generated using voice recognition software. It may contain grammatical, syntax o r spelling errors. Electronically signed by: Louie Ayala M.D. 08/23/2022 1:37 PM
[2022-08-23] MEDS ORDERED: PENDING D5 1/2NS+20mEq KCL IVF SCH (13:56)
[2022-08-23] MEDS ORDERED: ICU Protocol for HYPERglycemia SCH (13:56)
[2022-08-23] MEDS ORDERED: STAT IV Infusion **Titration per Protocol STA (13:56)
[2022-08-23] MEDS ORDERED: INSULIN REGULAR 250 UNITS in SODIUM CHLORIDE 0.9% 247.5 ML IV SCH (13:56)
[2022-08-23] MEDS ORDERED: PHARMACY GLYCEMIC MGMT CONSULT PRN (13:56)
--- NOTE | 2022-08-23 14:37 | Pharmacy Report ---
Pharmacy Glycemic Short Note 2 - Date of Service August 23, 2022 - Glycemic Short BSG Results (Last 24 hours): 08/23/22 08/23/22 08/23/22 10:04 10:17 13:50 Glucose 303 H* POC Glucose 287 H 198 H OUTPATIENT ANTIDIABETIC REGIMEN: * empagliflozin 25mg PO daily * glimepiride 2mg PO daily * Trulicity 3mg SQ weekly HbA1C:___ ASSESSMENT: * Patient is a 41 year old female with history of DM2 who presented with altered mental status in setting of DKA. Initial labs: pH-7.02, AG-24, bicarb-5, BSG- 287mg/dL. Initiated on insulin infusion per DKA protocol. Pharmacy consulted to assist with management. * NPO. D5NS w/ 20mEQ KCl @ 125ml/hr given BSG within goal range. Continue insulin drip until gap closed, bicarb >15, and mentating appropriately. HbA1C pending for tomorrow. Novolog ACHS carb coverage only if started on a diet. PLAN FOR INPATIENT GLYCEMIC CONTROL: * Hold outpatient oral diabetes medications * Basal insulin * insulin infusion per DKA protocol * Bolus insulin * NovoLog per scale ACHS or Q6hrs while NPO * Goal Range: Low 150 mg/dL - High 250 mg/dL * Correction Factor: - mg/dL/unit * Nutritional / Prandial insulin per carb ratio of 1 unit per 10 grams CHO consumed
[2022-08-23 15:14] LABS: Creatinine Clr Calc Pharmacy 70.3 ml/min; Est GFR (African American) 88.5 ml/min; Est GFR (Non-African American) 76.3 ml/min; Magnesium 2.4 mg/dl (1.7-2.4); Phosphorus 2.5 mg/dl (2.5-4.9); Potassium 3.4 mmol/L (3.5-5.1)
[2022-08-23] MEDS ORDERED: LACTATED RINGER'S 2,000 ML IV ONE (15:22)
[2022-08-23] MEDS: POTASSIUM CHLORIDE / WTR 10 MEQ/100 ML PLCT IV SCH ×4 (16:18→19:55)
[2022-08-23] MEDS: INSULIN ASPART PER UNIT CHARGE SC SCH ×2 (16:54→20:18)
--- NOTE | 2022-08-23 17:46 | Ultrasound Report ---
ABDOMINAL ULTRASOUND, RIGHT UPPER QUADRANT HISTORY: Elevated LFTs elevated lipase, AMS, DKA. COMPARISON: None. FINDINGS: Pancreas: The pancreas is obscured by bowel gas. Liver: Unremarkable. Gallbladder: No gallbladder wall thickening. No gallstones. CBD: 0.37 Right kidney: Obscured by bowel gas Limited study secondary to portable study and patient positioning. IMPRESSION: Limited study. No acute abnormality identified. ACT 112: Negative or not required by law. Electronically signed by: Louie Ayala M.D. 08/23/2022 5:44 PM
[2022-08-23 17:48] LABS: BUN Creatinine Ratio 46.1 (10-20); Calcium 9.5 mg/dl (8.6-10.3); Creatinine Clr Calc Pharmacy 86.1 ml/min; Est GFR (African American) 112.9 ml/min; Est GFR (Non-African American) 97.4 ml/min; Magnesium 2.1 mg/dl (1.7-2.4); Phosphorus 1.5 mg/dl (2.5-4.9); Potassium 3.8 mmol/L (3.5-5.1)
[2022-08-23] MEDS ORDERED: STAT IV STA (17:53)
[2022-08-23] MEDS ORDERED: SODIUM BICARBONATE 8.4% 100 MEQ in SODIUM CHLORIDE 0.45 % 1,000 ML IV SCH (18:15)
[2022-08-23] MEDS: FAMOTIDINE 20 MG in SYRINGE 3 ML IV SCH (19:57)
[2022-08-23 20:15] LABS: Calcium 9.6 mg/dl (8.6-10.3); Creatinine Clr Calc Pharmacy 82.8 ml/min; Est GFR (African American) 107.8 ml/min; Potassium 3.8 mmol/L (3.5-5.1)
[2022-08-23] MEDS: ENOXAPARIN INJ 40 MG/0.4 ML SYR SQ SCH (20:49)
[2022-08-23 22:07] LABS: Anion Gap 14 (3-11); BUN Creatinine Ratio 37.5 (10-20); Blood Urea Nitrogen 27 mg/dl (6-23); Calcium 9.4 mg/dl (8.6-10.3); Carbon Dioxide 10 mmol/L (21-32); Chloride 115 mmol/L (98-107); Creatinine Clr Calc Pharmacy 90.8 ml/min; Est GFR (African American) 120.6 ml/min; Glucose 164 mg/dl (70-99(Fasting)); Potassium 3.5 mmol/L (3.5-5.1); Sodium 139 mmol/L (136-145)
[2022-08-23 22:13] LABS: Magnesium 1.9 mg/dl (1.7-2.4); Phosphorus < 1.0 mg/dl (2.5-4.9)
[2022-08-23] MEDS ORDERED: POTASSIUM PHOS 3 MMOL/1 ML INFUSION IV STA (22:14)
[2022-08-23] MEDS ORDERED: POTASSIUM PHOSPHATE 30 MMOL in SODIUM CHLORIDE 0.9% 500 ML IV ONE (22:30)
[2022-08-23] MEDS: D5W AND 1/2NSS + 20MEQ KCL 20 MEQ/1,000 ML BAG IV SCH (22:37)
[2022-08-24 01:49] LABS: BUN Creatinine Ratio 33.3 (10-20); Calcium 9.2 mg/dl (8.6-10.3); Creatinine Clr Calc Pharmacy 99.1 ml/min; Est GFR (African American) 127.2 ml/min; Est GFR (Non-African American) 109.7 ml/min; Potassium 3.4 mmol/L (3.5-5.1)
[2022-08-24] MEDS: D5W AND 1/2NSS + 20MEQ KCL 20 MEQ/1,000 ML BAG IV SCH ×4 (05:00→20:38)
[2022-08-24 07:45] LABS: Anion Gap 18 (3-11); BUN Creatinine Ratio 27.9 (10-20); Blood Urea Nitrogen 17 mg/dl (6-23); Calcium 9.5 mg/dl (8.6-10.3); Carbon Dioxide 11 mmol/L (21-32); Chloride 110 mmol/L (98-107); Creatinine Clr Calc Pharmacy 105.8 ml/min; Est GFR (African American) 130.5 ml/min; Est GFR (Non-African American) 112.6 ml/min; Glucose 169 mg/dl (70-99(Fasting)); Sodium 139 mmol/L (136-145)
[2022-08-24] MEDS: FAMOTIDINE 20 MG in SYRINGE 3 ML IV SCH ×2 (08:01→20:39)
[2022-08-24] MEDS: INSULIN ASPART PER UNIT CHARGE SC SCH ×4 (08:01→19:24)
[2022-08-24] MEDS ORDERED: SODIUM CHLORIDE 0.9% 500 ML IV ONE (08:15)
[2022-08-24] MEDS ORDERED: PIPERACILLIN/TAZOBACTAM 4.5 GM (over 30 mins) IV ONE (08:15)
[2022-08-24 08:25] LABS: Estimated Average Glucose 194 mg/dl; Hemoglobin A1C 8.4 % (4.5-5.6)
--- NOTE | 2022-08-24 09:10 | Critical Care Progress Note ---
Date of Service August 24, 2022 Assessment & Plan (1) DKA (diabetic ketoacidosis): (2) Dehydration: (3) High anion gap metabolic acidosis: (4) Acute metabolic encephalopathy: (5) HTN (hypertension): (6) Anxiety: (7) Bipolar 2 disorder: (8) T2DM (type 2 diabetes mellitus): (9) Pancreatitis: (10) Sepsis: Plan Patient with persistent DKA. Anion gap is worsened this morning along with worsening bicarb. Continue with DKA protocol. Initiate Zosyn due to ongoing fevers. She has evidence of pancreatitis. Continue crystalloid infusions. We will give 1 L bolus of half-normal saline this morning. Continue every 4 hours BMP. Admission and Anticipated Discharge Date Admission Date: August 23, 2022 Subjective Patient remains mildly encephalopathic. She is much more awake, but not answering questions appropriately. Review of Systems Review of Systems: Unobtainable due to cognitive status Physical Exam Physical Exam: VITAL SIGNS - Vital signs and nursing notes were reviewed. GENERAL - 41-year-old female appearing her stated age who is in mild respiratory distress. Altered. SKIN - Without rashes. HEAD - NC/AT. EYES - PERRL with EOMI bilaterally. Sclera anicteric. EARS - No deformities of external structures noted on gross examination bilaterally. NOSE - Midline and without cyanosis. No epistaxis or purulent drainage noted. MOUTH/OROPHARYNX - Without perioral cyanosis. Buccal mucosa pink and dry. NECK - Neck with FROM. No nuchal rigidity. LUNGS - Normal vesicular breath sounds CTA B/L. No wheezes, rales, or rhonchi appreciated. CARDIAC - RRR with S1/S2. No murmur, rubs, or gallops appreciated. ABDOMEN - Abdominal contour obese without pulsations or visible masses. BS normoactive all four quadrants. No tenderness, palpable masses, hepatosplenomegaly, or ascites noted. EXTREMITIES - No clubbing or peripheral cyanosis. No pretibial edema present. +3/5 radial and dorsalis pedis pulses palpated throughout. NEUROLOGIC -no focal neurological deficits noted. Limited exam secondary to altered mental status. Results & Data Results & Data Vital Signs (Past 12 Hours) Vital Signs Temp Pulse Resp BP Pulse Ox O2 Del Method 08/24/22 07:00 37.4 C Room Air 08/24/22 00:30 36.8 C 08/24/22 05:15 36.9 C 08/24/22 02:00 122 H 19 100 08/24/22 02:00 144/105 H 08/24/22 01:30 117 H 14 100 08/24/22 01:01 143/100 H 08/24/22 01:01 120 H 14 100 08/24/22 01:00 119 H 14 100 08/24/22 00:30 37.2 C 123 H 16 100 08/24/22 00:02 120/102 H 08/24/22 00:02 123 H 18 100 08/24/22 00:00 123 H 11 L 88 L 08/23/22 23:30 37.1 C 120 H 15 100 08/23/22 23:00 37.1 C 123 H 19 98 08/23/22 23:00 151/95 H 08/23/22 22:30 37.0 C 100 08/23/22 22:00 37.9 C H 123 H 16 99 08/23/22 22:00 141/91 H 08/23/22 21:30 37.1 C 123 H 17 100 08/23/22 23:43 117 H Coding Level of Care Code 21254 SUB INP/OBS CARE 3/50MIN Diagnoses DKA (diabetic ketoacidosis) E11.10 Dehydration E86.0 High anion gap metabolic acidosis E87.29 Acute metabolic encephalopathy G93.41 HTN (hypertension) I10 Anxiety F41.9 Bipolar 2 disorder F31.81 T2DM (type 2 diabetes mellitus) E11.9 Pancreatitis K85.90 Sepsis A41.9
--- NOTE | 2022-08-24 11:24 | Pharmacy Report ---
Pharmacy Glycemic Short Note 2 - Date of Service August 24, 2022 - Glycemic Short BSG Results (Last 24 hours): 08/23/22 08/23/22 08/23/22 13:50 14:31 14:32 Glucose 182 H POC Glucose 198 H 168 H 08/23/22 08/23/22 08/23/22 15:36 16:36 17:07 Glucose 182 H POC Glucose 165 H 182 H 08/23/22 08/23/22 08/23/22 17:34 19:28 19:36 Glucose 177 H POC Glucose 175 H 178 H 08/23/22 08/23/22 08/23/22 21:31 21:33 23:33 Glucose 164 H POC Glucose 160 H 121 H 08/24/22 08/24/22 08/24/22 00:35 00:49 01:07 Glucose POC Glucose 113 H 127 H 119 H 08/24/22 08/24/22 08/24/22 01:23 01:34 01:55 Glucose 124 H POC Glucose 135 H 128 H 08/24/22 08/24/22 08/24/22 02:18 02:39 03:27 Glucose POC Glucose 134 H 134 H 175 H 08/24/22 08/24/22 08/24/22 04:48 05:58 06:33 Glucose 169 H POC Glucose 189 H 165 H 08/24/22 08/24/22 08/24/22 07:54 08:56 10:58 Glucose POC Glucose 186 H 200 H 232 H OUTPATIENT ANTIDIABETIC REGIMEN: * empagliflozin 25mg PO daily * glimepiride 2mg PO daily * Trulicity 3mg SQ weekly * HbA1C: 8.4% 08/24/22 ASSESSMENT: 08/24 * Patient continues on insulin drip at this time, infusion rates ~1.1 unit/hr at this time. Dextrose containing IVF's continue. * Although AG and Bicarb have improved since presentation, AG has not yet normalized and bicarb remains less than 15. Patient's mental status has not fully improved. Patient remains NPO * Insulin drip and dextrose containing IVF's will continue at this time as she is not ready to transition to a SQ regimen. 08/23 * Patient is a 41 year old female with history of DM2 who presented with altered mental status in setting of DKA. Initial labs: pH-7.02, AG-24, bicarb-5, BSG- 287mg/dL. Initiated on insulin infusion per DKA protocol. Pharmacy consulted to assist with management. * NPO. D5NS w/ 20mEQ KCl @ 125ml/hr given BSG within goal range. Continue insulin drip until gap closed, bicarb >15, and mentating appropriately. HbA1C pending for tomorrow. Novolog ACHS carb coverage only if started on a diet. PLAN FOR INPATIENT GLYCEMIC CONTROL: * Hold outpatient oral diabetes medications * Basal insulin * insulin infusion per DKA protocol; change goal to 140-200mg/dL * Bolus insulin * NovoLog per scale ACHS or Q6hrs while NPO * Goal Range: Low 140 mg/dL - High 200 mg/dL * Correction Factor: - mg/dL/unit * Nutritional / Prandial insulin per carb ratio of 1 unit per 10 grams CHO consumed
[2022-08-24 11:43] LABS: Calcium 9.4 mg/dl (8.6-10.3); Magnesium 1.8 mg/dl (1.7-2.4); Potassium 3.1 mmol/L (3.5-5.1)
[2022-08-24 11:46] LABS: Basophils # (auto) 0.02 K/uL (0-0.2); Basophils % (auto) 0.2 %; Eosinophils # (auto) 0.01 K/uL (0-0.50); Eosinophils % (auto) 0.1 %; Hematocrit (blood only) 40.2 % (37.0-47.0); Hemoglobin 14.7 g/dl (12.0-16.0); Immature Granulocytes # (auto) 0.05 K/uL (0.01-0.20); Immature Granulocytes % (auto) 0.5 %; Lymphocytes # (auto) 0.52 K/uL (1.2-3.4); Lymphocytes % (auto) 5.7 %; Mean Corpuscular Hemoglobin 29.4 pg (25.0-34.0); Mean Corpuscular Hgb Conc 36.6 g/dL (32.0-36.0); Mean Corpuscular Volume 80.4 fL (80.0-100.0); Mean Platelet Volume 9.5 fL (9.4-12.4); Monocytes # (auto) 0.63 K/uL (0.11-0.59); Monocytes % (auto) 6.9 %; Neutrophils # (auto) 7.95 K/uL (1.40-6.50); Neutrophils % (auto) 86.6 %; Platelet Count 273 K/uL (130-400); Platelet Estimate Normal (Normal); RDW Coefficient of Variation 14.2 % (11.5-14.5); RDW Standard Deviation 40.7 fL (36.4-46.3); White Blood Count 9.18 K/ul (4.8-10.8)
[2022-08-24 11:48] LABS: Creatinine Clr Calc Pharmacy 104.1 ml/min; Est GFR (African American) 129.8 ml/min
[2022-08-24 11:50] LABS: Phosphorus 1.3 mg/dl (2.5-4.9)
[2022-08-24] MEDS: INSULIN REGULAR 250 UNITS in SODIUM CHLORIDE 0.9% 247.5 ML IV SCH (11:54)
[2022-08-24] MEDS ORDERED: POTASSIUM PHOS 3 MMOL/1 ML INFUSION IV STA ×2 (11:57→17:10)
[2022-08-24] MEDS ORDERED: POTASSIUM PHOSPHATE 30 MMOL in SODIUM CHLORIDE 0.9% 500 ML IV ONE ×2 (12:30→17:30)
[2022-08-24] MEDS ORDERED: LACTATED RINGER'S 1,000 ML IV ONE (12:53)
--- NOTE | 2022-08-24 12:53 | Procedure Note ---
Procedure Note Date of Service August 24, 2022 Note INTERNAL JUGULAR CENTRAL LINE PROCEDURE NOTE: Procedure: Internal Jugular Central Line Placement Indication: Central Drug Administration, Poor Venous Access, Multiple Lab Draws Necessary, etc. Anesthesia: None/10 ml Lidocaine 1% Consent was signed and placed on the chart prior to procedure. Indication, risks, and benefits were explained at length. A time-out was completed verifying correct patient, procedure, site, positioning, and implants(s) or special equipment if applicable. Patients right neck was cleansed and draped in the typical sterile fashion using Chloraprep. The Internal Jugular Vein and Carotid Artery were identified using ultrasound. The superficial tissue was anesthetized using 10 mL of 1% lidocaine without epinephrine under direct visualization with the ultrasound. After adequate anesthetization was achieved, the Internal Jugular vein was cannulated under direct ultrasound guidance using an introducer needle on a syringe. Good venous blood return was maintained prior to removal of syringe from introducer needle. Using Seldinger Technique, a guide wire was advanced through the introducer needle without resistance. The introducer needle was removed and ultrasound images were obtained of the guide wire within the Internal Jugular Vein and saved to the patients medical record. A small incision was made in penetrating fashion at the guide wire insertion site utilizing an 11 blade scalpel. The dila tor was advanced to the vessel without resistance. The dilator was exchanged for the triple lumen catheter which was advanced into the vessel without resistance. The guide wire was removed intact from the catheter without issue. Claves were placed on each catheter tip with confirmation of good blood flow from each lumen. Each port was easily flushed with sterile saline. The catheter was placed at 60 cm and sut[address] in place. BioPatch was applied to the catheter and a sterile Tegaderm dressing was applied over the catheter with careful attention to sterility. Patient tolerated procedure well. No immediate complications were met. Post procedure x-ray was ordered. Ultrasound guidance was utilized throughout the procedure. Coding CPT Codes Tubes, Drains, and Vasc Access - Tubes, Drains, and Vasc Access: [id number] Place catheter in vein superior or inferior vena cava ([id number]) Tubes, Drains, and Vasc Access - Tubes, Drains, and Vasc Access: [id number] Ultrasound Guidance For Vascular ([id number]) [facility] [place]arges) Tubes, Drains, and Vasc Access Procedure 1: Tubes, Drains, and Vasc Access: [id number] Place catheter in vein superior or inferior vena cava Procedure 2: Tubes, Drains, and Vasc Access: [id number] Ultrasound Guidance For Vascular
[2022-08-24] MEDS ORDERED: MAGNESIUM SULFATE / D5W 1 GM/100 ML BAG IV ONE (13:00)
--- NOTE | 2022-08-24 13:05 | XRay Report ---
XR chest 1V portable CLINICAL HISTORY: rij cvl COMPARISON STUDY: Chest radiograph August 23, 2022. FINDINGS: There is no pneumothorax following placement of a right internal jugular central line. Cath eter tip projects over the right atrium. Lung volumes are normal. Lungs are clear. There is no pleura l effusion. Cardiac size is normal. Mediastinal contours are normal. There is no evidence for pulmona ry edema. IMPRESSION: 1. No pneumothorax following placement of a right internal jugular central line. 2. No acute cardiopulmonary findings. ACT 112: Negative or not required by law. Electronically signed by: Massimo Meneses M.D. 08/24/2022 1:04 PM
[2022-08-24] MEDS: POTASSIUM CHLORIDE / WTR 20 MEQ/100 ML PLCT IV SCH ×5 (13:12→20:40)
[2022-08-24] MEDS ORDERED: PIPERACILLIN/TAZOBACTAM 4.5 GM CI (over 4 hours) IV SCH (14:00)
[2022-08-24] MEDS ORDERED: ACETAMINOPHEN 1,000 MG/100 ML VIAL IV PRN ×2 (14:46→15:27)
--- NOTE | 2022-08-24 15:17 | Hospitalist Progress Note ---
Date of Service August 24, 2022 Assessment & Plan (1) Acute metabolic encephalopathy: (2) DKA (diabetic ketoacidosis): (3) High anion gap metabolic acidosis: (4) Dehydration: (5) Acute pancreatitis: Plan This is a 41-year-old female with significant past medical history of T2DM, HTN, chronic pain syndrome, bipolar 2 disorder, tobacco use who presents to ED with altered mental status. She was found to be in severe DKA on admission. Admitted to ICU for further care Acute metabolic encephalopathy DKA High anion gap metabolic acidosis Acute pancreatitis Possible sepsis Patient is a 41-year-old female with past medical history of type 2 diabetes me llitus who presented to the ED with altered mental status Labs reviewed; consistent with metabolic acidosis secondary to DKA. Bicarb of 12 and anion gap is 18 Lipase significantly elevated Phosphorus of 1.3 Urine toxicology positive for MDMA; unsure if patient has history of use of MDMA or is a false positive due to bupropion Blood culture negative till date HbA1c of 8.2. Continue ICU care with IV insulin, IV hydration, repletion of electrolytes. Currently on empiric Zosyn; continue for now Jardiance needs to be discontinued given acute pancreatitis at discharge Patient to be started on long-acting insulin after resolution of DKA Chronic conditions; Hyperlipidemiacontinue Lipitor Bipolar disordercontinue on sertraline, bupropion DVT prophylaxis: Lovenox Dispo: To ICU for critical management of DKA with severe metabolic acidosis PCP: True Gibson Full code Discussed with family at bedside. Answered questions/queries. Time spent evaluating patient, direct bedside care, chart review, placing orders, interpretation of diagnostic studies, discussion with consultants, patient, and family members, as well as other required patient management activities is 60 minutes Please note the above document was generated using voice recognition software. It may contain grammatical, syntax or spelling errors. Any formal questions or concerns about the content, text or information contained within the body of this dictation should be directly addressed to the provider for clarification Admission and Anticipated Discharge Date Admission Date: August 23, 2022 Subjective Patient seen and examined in ICU. She is delirious; is unable to answer any questions appropriately. Review of Systems Review of Systems: Unobtainable due to cognitive status Physical Exam Physical Exam: Constitutional: Awake, appears delirious; unable to answer any questions. Respiratory: normal respiratory effort, lungs clear to auscultation, no wheeze, rales, rhonchi. Normal insp/exp effort, no accessory muscle use Cardiovascular: RRR, no murmur, no edema Vessels: no JVD or carotid bruit Chest: normal inspection of chest Abdomen: normal bowel sounds, soft, nontender, no hepatosplenomegaly Musculoskeletal: no cyanosis or clubbing, extremities motor strength 5/5 Skin: no rashes, warm and dry normal turgor Neurologic: PERRL, EOMI, accommodation nl, no face palsy, no dysarthria CN's II- XI intact bilaterally and moves all extremities Psychiatric: A+Ox3, euthymic affect Results & Data Results & Data Vital Signs (Past 12 Hours) Vital Signs Temp Pulse Resp BP Pulse Ox Pulse Ox O2 Del Method 08/24/22 13:00 38.0 C H 117 H 17 100 08/24/22 13:00 129/91 08/24/22 12:52 115/85 08/24/22 12:52 37.9 C H 117 H 20 91 08/24/22 12:30 37.9 C H 100 08/24/22 12:00 37.9 C H 112 H 14 98 08/24/22 11:30 37.8 C H 104 H 12 99 08/24/22 11:00 37.7 C H 115 H 19 100 08/24/22 10:30 37.7 C H 118 H 13 99 08/24/22 10:00 37.8 C H 117 H 15 98 08/24/22 09:30 37.8 C H 104 H 17 96 08/24/22 09:05 37.8 C H 118 H 11 L 95 08/24/22 09:05 139/101 H 08/24/22 09:00 37.8 C H 119 H 11 L 87 L 08/24/22 08:30 37.8 C H 118 H 16 100 08/24/22 08:01 37.7 C H 123 H 14 100 08/24/22 08:01 117/99 08/24/22 08:00 37.7 C H 121 H 16 81 L 08/24/22 07:33 159/99 H 08/24/22 07:33 37.7 C H 115 H 16 99 08/24/22 07:30 37.7 C H 121 H 17 100 08/24/22 07:00 37.6 C H 100 08/24/22 08:00 Room Air 08/24/22 08:00 100 08/24/22 08:00 Room Air 08/24/22 08:00 122 H 08/24/22 07:00 37.4 C Room Air 08/24/22 05:15 36.9 C O2 Del Method 08/24/22 13:00 08/24/22 13:00 08/24/22 12:52 08/24/22 12:52 08/24/22 12:30 08/24/22 12:00 08/24/22 11:30 08/24/22 11:00 08/24/22 10:30 08/24/22 10:00 08/24/22 09:30 08/24/22 09:05 08/24/22 09:05 08/24/22 09:00 08/24/22 08:30 08/24/22 08:01 08/24/22 08:01 08/24/22 08:00 08/24/22 07:33 08/24/22 07:33 08/24/22 07:30 08/24/22 07:00 08/24/22 08:00 08/24/22 08:00 Room Air 08/24/22 08:00 08/24/22 08:00 08/24/22 07:00 08/24/22 05:15 Laboratory Results Laboratory Results WBC 9.18 K/ul (4.8-10.8) 08/24/22 10:39 RBC 5.00 M/uL (4.20-5.40) 08/24/22 10:39 Hgb 14.7 g/dl (12.0-16.0) 08/24/22 10:39 Hct 40.2 % (37.0-47.0) 08/24/22 10:39 MCV 80.4 fL (80.0-100.0) D 08/24/22 10:39 MCH 29.4 pg (25.0-34.0) 08/24/22 10:39 MCHC 36.6 g/dL (32.0-36.0) H 08/24/22 10:39 RDW Std Deviation 40.7 fL (36.4-46.3) 08/24/22 10:39 RDW Coeff of Kishan 14.2 % (11.5-14.5) 08/24/22 10:39 Plt Count 273 K/uL (130-400) 08/24/22 10:39 MPV 9.5 fL (9.4-12.4) 08/24/22 10:39 Immature Gran % (Auto) 0.5 % 08/24/22 10:39 Neut % (Auto) 86.6 % 08/24/22 10:39 Lymph % (Auto) 5.7 % 08/24/22 10:39 [place] % (Auto) 6.9 % 08/24/22 10:39 Eos % (Auto) 0.1 % 08/24/22 10:39 Baso % (Auto) 0.2 % 08/24/22 10:39 Neut # (Auto) 7.95 K/uL (1.40-6.50) H 08/24/22 10:39 Lymph # (Auto) 0.52 K/uL (1.2-3.4) L 08/24/22 10:39 [place] # (Auto) 0.63 K/uL (0.11-0.59) H 08/24/22 10:39 Eos # (Auto) 0.01 K/uL (0-0.50) 08/24/22 10:39 Baso # (Auto) 0.02 K/uL (0-0.2) 08/24/22 10:39 Immature Gran # (Auto) 0.05 K/uL (0.01-0.20) 08/24/22 10:39 Platelet Estimate Normal (Normal) 08/24/22 10:39 PT 10.5 Seconds (9.0-12.0) 08/23/22 10:17 INR 1.0 (0.9-1.1) 08/23/22 10:17 APTT 27.1 Seconds (21.0-31.0) 08/23/22 10:17 PTT Ratio 1.0 08/23/22 10:17 ABG pH 7.02 (7.35-7.45) L* 08/23/22 12:37 ABG pCO2 11 mmHg (35-46) L 08/23/22 12:37 ABG pO2 136 mmHg (80-95) H 08/23/22 12:37 ABG HCO3 3 mmol/L (19-24) L 08/23/22 12:37 ABG O2 Saturation 99.8 % (90-95) H 08/23/22 12:37 ABG Base Excess -26.2 mEq/L (-9-1.8) L 08/23/22 12:37 North Test Pos (Pos) 08/23/22 12:37 VBG pH 7.38 (7.36-7.41) 08/24/22 14:21 VBG pCO2 24 mmHg (38-50) L 08/23/22 10:17 VBG pO2 36 mmHg 08/23/22 10:17 VBG HCO3 mmol/L 08/23/22 10:17 VBG O2 Saturation 65.2 % 08/23/22 10:17 VBG Base Excess mEq/L 08/23/22 10:17 Oxygen Given ROOM AIR 08/23/22 12:37 Sodium 136 mmol/L (136-145) 08/24/22 10:39 Potassium 3.1 mmol/L (3.5-5.1) L D 08/24/22 10:39 Chloride 106 mmol/L (98-107) 08/24/22 10:39 Carbon Dioxide 12 mmol/L (21-32) L 08/24/22 10:39 Anion Gap 18 (3-11) H 08/24/22 10:39 BUN 13 mg/dl (6-23) 08/24/22 10:39 Creatinine 0.62 mg/dl (0.6-1.2) 08/24/22 10:39 Est Cr Clr Drug Dosing 104.1 ml/min 08/24/22 10:39 Est GFR ( Amer) 129.8 ml/min 08/24/22 10:39 Est GFR (Non-Af Amer) 112.0 ml/min 08/24/22 10:39 BUN/Creatinine Ratio 21.0 (10-20) H 08/24/22 10:39 Glucose 218 mg/dl (70-99(Fasting)) H 08/24/22 10:39 POC Glucose 145 mg/dl (70-99) H 08/24/22 14:59 Estimat Average Glucose 194 mg/dl 08/24/22 01:23 Hemoglobin A1c 8.4 % (4.5-5.6) H 08/24/22 01:23 Lactate 1.3 mmol/L (0.4-2.0) 08/23/22 11:20 Calcium 9.4 mg/dl (8.6-10.3) 08/24/22 10:39 Phosphorus 1.3 mg/dl (2.5-4.9) L* 08/24/22 10:39 Magnesium 1.8 mg/dl (1.7-2.4) 08/24/22 10:39 Total Bilirubin 0.2 mg/dl (0.2-1.0) 08/23/22 10:17 Direct Bilirubin 0.0 mg/dl (0-0.2) 08/23/22 10:17 AST 10 U/L (13-39) L 08/23/22 10:17 ALT 10 U/L (7-52) 08/23/22 10:17 Alkaline Phosphatase 90 U/L (34-104) 08/23/22 10:17 Ammonia 44.0 umol/L (18-72) 08/23/22 11:20 Troponin I High Sens 6.8 pg/ml (0-14) 08/23/22 10:17 Total Protein 7.7 gm/dl (6.0-8.3) 08/23/22 10:17 Albumin 4.2 gm/dl (3.4-5.0) 08/23/22 10:17 Lipase 2021 U/L (11-82) H 08/23/22 14:32 Procalcitonin 0.34 ng/ml (0-0.5) 08/23/22 10:17 Urine Color Yellow 08/23/22 10:15 Urine Appearance Clear (Clear) 08/23/22 10:15 Urine pH 6.0 (4.5-7.5) 08/23/22 10:15 Ur Specific [place] 1.028 (1.000-1.030) 08/23/22 10:15 Urine Protein 1+ (Negative) H 08/23/22 10:15 Urine Glucose (UA) 3+ (Negative) H 08/23/22 10:15 Urine Ketones 4+ (Negative) H 08/23/22 10:15 Urine Blood Negative (Negative) 08/23/22 10:15 Urine Nitrite Negative (Negative) 08/23/22 10:15 Urine Bilirubin Negative (Negative) 08/23/22 10:15 Urine Urobilinogen Negative (Negative) 08/23/22 10:15 Ur Leukocyte Esterase Negative (Negative) 08/23/22 10:15 Urine WBC (Auto) 1-5 /hpf (0-5) 08/23/22 10:15 Urine RBC (Auto) 0-4 /hpf (0-4) 08/23/22 10:15 U Hyaline Cast (Auto) 5-10 /lpf (0-5) H 08/23/22 10:15 U Epithel Cells (Auto) >30 /lpf (0-5) H 08/23/22 10:15 Urine Bacteria (Auto) Negative (Negative) 08/23/22 10:15 Nasal Screen MRSA (PCR) Negative (Negative) 08/23/22 13:50 Urine Opiates Screen Neg (Neg) 08/23/22 10:15 Ur Methadone, Qual Neg (Neg) 08/23/22 10:15 Urine Barbiturates Neg (Neg) 08/23/22 10:15 Ur Phencyclidine (PCP) Neg (Neg) 08/23/22 10:15 U Amphetamin/Meth Scrn Neg (Neg) 08/23/22 10:15 MDMA (Ecstasy) Screen Pos (Neg) H 08/23/22 10:15 U Benzodiazepines Scrn Neg (Neg) 08/23/22 10:15 Ur Cocaine Metabolite Neg (Neg) 08/23/22 10:15 U Marijuana (THC) Screen Neg (Neg) 08/23/22 10:15 Ethyl Alcohol mg/dL < 10.0 mg/dl (<10.0) 08/23/22 11:20 SARS-CoV-2, RNA, NAAT NEGATIVE (NEGATIVE) 08/23/22 10:[address] 08/23/22 10:14 CT head/brain wo con CLINICAL HISTORY: 41 years-old Female with altered. Acutely altered mental status TECHNIQUE: Multiple axial CT images of the head were obtained without contrast. A dose lowering technique was utilized adhering to the principles of ALARA. CT DOSE: 625.80 mGy.cm COMPARISON: None. FINDINGS: No acute intracranial hemorrhage, midline shift, intracranial mass, hydrocephalus, territorial ischemia or abnormal extra-axial collection. The calvarium is intact. The paranasal sinuses, mastoid air cells, and middle ear cavities are clear. IMPRESSION: No acute intracranial abnormality. ACT 112: Negative or not required by law. The above report was generated using voice recognition software. It may contain grammatical, syntax or spelling errors. Electronically signed by: Louie Ayala M.D. 08/23/2022 1:37 PM Abdomen Ultrasound 08/23/22 15:48 ABDOMINAL ULTRASOUND, RIGHT UPPER QUADRANT HISTORY: Elevated LFTs elevated lipase, AMS, DKA. COMPARISON: None. FINDINGS: Pancreas: The pancreas is obscured by bowel gas. Liver: Unremarkable. Gallbladder: No gallbladder wall thickening. No gallstones. CBD: 0.37 Right kidney: Obscured by bowel gas Limited study secondary to portable study and patient positioning. IMPRESSION: Limited study. No acute abnormality identified. ACT 112: Negative or not required by law. Electronically signed by: Louie Ayala M.D. 08/23/2022 5:44 PM Chest X-Ray 08/24/22 12:50 XR chest 1V portable CLINICAL HISTORY: rij cvl COMPARISON STUDY: Chest radiograph August 23, 2022. FINDINGS: There is no pneumothorax following placement of a right internal jugular central line. Catheter tip projects over the right atrium. Lung volumes are normal. Lungs are clear. There is no pleural effusion. Cardiac size is normal. Mediastinal contours are normal. There is no evidence for pulmonary edema. IMPRESSION: 1. No pneumothorax following placement of a right internal jugular central line. 2. No acute cardiopulmonary findings. ACT 112: Negative or not required by law. Electronically signed by: Massimo Meneses M.D. 08/24/2022 1:04 PM
[2022-08-24 16:02] LABS: Calcium 8.5 mg/dl (8.6-10.3)
[2022-08-24] MEDS ORDERED: STAT IV Infusion **Titration per Protocol STA (16:07)
[2022-08-24] MEDS ORDERED: VANCOMYCIN CONSULT ACTIVE PRN (16:09)
[2022-08-24] MEDS ORDERED: VANCOMYCIN HCL 1,750 MG in SODIUM CHLORIDE 0.9% 500 ML IV SCH (16:15)
[2022-08-24 16:16] LABS: BUN Creatinine Ratio 16.7 (10-20); Creatinine Clr Calc Pharmacy 134.4 ml/min; Est GFR (African American) 141.2 ml/min; Est GFR (Non-African American) 121.8 ml/min; Phosphorus 1.5 mg/dl (2.5-4.9)
[2022-08-24] MEDS ORDERED: LORazepam 2 MG/1 ML VIAL IV STA (16:20)
[2022-08-24] MEDS: dexMEDEtomidine 200 MCG/50 ML BAG IV SCH ×2 (16:32→21:53)
[2022-08-24] MEDS: cefTRIAXone SODIUM 2,000 MG in DEXTROSE 5% 50 ML IV SCH (16:44)
[2022-08-24 16:55] LABS: Calcium 8.4 mg/dl (8.6-10.3); Potassium 3.2 mmol/L (3.5-5.1)
[2022-08-24 17:01] LABS: BUN Creatinine Ratio 16.3 (10-20); Creatinine Clr Calc Pharmacy 131.7 ml/min; Est GFR (African American) 140.3 ml/min; Phosphorus 1.8 mg/dl (2.5-4.9)
[2022-08-24] MEDS: AMPICILLIN 2,000 MG in SODIUM CHLOR 0.9% AD-VAN 100 ML IV SCH ×3 (17:05→23:25)
[2022-08-24] MEDS: ACYCLOVIR SOD 550 MG in DEXTROSE 5% 100 ML IV SCH (17:21)
[2022-08-24 18:59] LABS: BUN Creatinine Ratio 14.6 (10-20); Calcium 8.3 mg/dl (8.6-10.3); Creatinine Clr Calc Pharmacy 134.4 ml/min; Est GFR (African American) 141.2 ml/min; Est GFR (Non-African American) 121.8 ml/min; Phosphorus 2.5 mg/dl (2.5-4.9); Potassium 3.5 mmol/L (3.5-5.1)
[2022-08-24] MEDS: ENOXAPARIN INJ 40 MG/0.4 ML SYR SQ SCH (20:38)
[2022-08-24 20:44] LABS: BUN Creatinine Ratio 12.5 (10-20); Calcium 7.9 mg/dl (8.6-10.3); Creatinine Clr Calc Pharmacy 134.4 ml/min; Est GFR (African American) 141.2 ml/min; Est GFR (Non-African American) 121.8 ml/min; Phosphorus 2.2 mg/dl (2.5-4.9); Potassium 3.5 mmol/L (3.5-5.1)
[2022-08-24] MEDS ORDERED: GADOBUTROL 65ML VIAL IV ONE (22:47)
--- NOTE | 2022-08-24 23:36 | Magnetic Resonance Report ---
Exam(s): MRI HEAD W/WO Contrast IV Amt: 6.5 GADAVIST EXAM: MR Head Without and With Intravenous Contrast CLINICAL HISTORY: Reason for exam: Severe encephalopathy. TECHNIQUE: Magnetic resonance images of the head/brain without and with intravenous contrast in multiple planes. CONTRAST: Patient received 6.5 GADAVIST of IV contrast COMPARISON: No relevant prior studies available. FINDINGS: Brain: Generalized atrophy for patient's age. No mass. No hemorrhage. No acute infarct. Ventricles: Unremarkable. No ventriculomegaly. Bones/joints: Unremarkable. Sinuses: Unremarkable as visualized. No acute sinusitis. Mastoid air cells: Unremarkable as visualized. No mastoid effusion. Orbits: Unremarkable as visualized. IMPRESSION: Generalized atrophy for patient's age. Electronically signed by: Ariel Harden M.D. 08/24/22 23:35 PM
[2022-08-24 23:50] LABS: Anion Gap 13 (3-11); BUN Creatinine Ratio 13.5 (10-20); Blood Urea Nitrogen 5 mg/dl (6-23); Carbon Dioxide 14 mmol/L (21-32); Chloride 104 mmol/L (98-107); Creatinine Clr Calc Pharmacy 174.3 ml/min; Est GFR (African American) > 150.0 ml/min; Est GFR (Non-African American) 132.7 ml/min; Glucose 184 mg/dl (70-99(Fasting)); Phosphorus 2.3 mg/dl (2.5-4.9); Potassium 3.5 mmol/L (3.5-5.1); Sodium 131 mmol/L (136-145)
[2022-08-25] MEDS: dexMEDEtomidine 200 MCG/50 ML BAG IV SCH ×4 (00:31→12:40)
[2022-08-25] MEDS: ACYCLOVIR SOD 550 MG in DEXTROSE 5% 100 ML IV SCH ×3 (00:31→15:52)
[2022-08-25] MEDS: D5NSS + 20MEQ KCL 20 MEQ/1,000 ML BAG IV SCH ×3 (01:04→09:35)
[2022-08-25] MEDS: AMPICILLIN 2,000 MG in SODIUM CHLOR 0.9% AD-VAN 100 ML IV SCH ×6 (02:30→23:43)
[2022-08-25] MEDS: cefTRIAXone SODIUM 2,000 MG in DEXTROSE 5% 50 ML IV SCH ×2 (03:44→17:36)
[2022-08-25] MEDS ORDERED: VANCOMYCIN HCL 1,250 MG in SODIUM CHLORIDE 0.9% 250 ML IV SCH (05:30)
[2022-08-25 07:02] LABS: Anion Gap 10 (3-11); BUN Creatinine Ratio 11.1 (10-20); Blood Urea Nitrogen 3 mg/dl (6-23); Calcium 8.1 mg/dl (8.6-10.3); Carbon Dioxide 19 mmol/L (21-32); Chloride 106 mmol/L (98-107); Creatinine Clr Calc Pharmacy 237.7 ml/min; Est GFR (African American) > 150.0 ml/min; Est GFR (Non-African American) 147.2 ml/min; Glucose 182 mg/dl (70-99(Fasting)); Sodium 135 mmol/L (136-145)
[2022-08-25 07:05] LABS: Magnesium 1.5 mg/dl (1.7-2.4); Phosphorus 1.4 mg/dl (2.5-4.9)
[2022-08-25] MEDS ORDERED: POTASSIUM PHOS 3 MMOL/1 ML INFUSION IV STA ×2 (07:20→10:56)
[2022-08-25] MEDS ORDERED: POTASSIUM CHLORIDE / WTR 20 MEQ/100 ML PLCT IV SCH ×2 (07:30→14:00)
[2022-08-25] MEDS: MAGNESIUM SULFATE / D5W 1 GM/100 ML BAG IV SCH ×3 (07:53→11:35)
[2022-08-25] MEDS: INSULIN ASPART PER UNIT CHARGE SC SCH ×4 (07:58→20:02)
[2022-08-25] MEDS: FAMOTIDINE 20 MG in SYRINGE 3 ML IV SCH ×2 (08:00→21:29)
--- NOTE | 2022-08-25 08:36 | Critical Care Progress Note ---
Date of Service August 25, 2022 Assessment & Plan (1) DKA (diabetic ketoacidosis): (2) Dehydration: (3) High anion gap metabolic acidosis: (4) Acute metabolic encephalopathy: (5) HTN (hypertension): (6) Anxiety: (7) Bipolar 2 disorder: (8) T2DM (type 2 diabetes mellitus): (9) Pancreatitis: (10) Sepsis: Plan DKA resolving with anion gap closed. Bicarb remains mildly low. Continue with crystalloid infusion. Okay to overlap with long-acting insulin. Advance diet as tolerated. MRI brain obtained yesterday due to ongoing encephalopathy likely related to DKA and possible withdrawal from psych meds. Started on meningitis doses of antibiotics yesterday. Fever curve improved. Continue with empiric treatment. Blood cultures negative to date. Lipase was mildly elevated on admission likely due to DKA. We will continue to monitor. No signs of nausea or vomiting. Minimal abdominal complaints. Wean Precedex to off given improving mental status. Replace electrolytes aggressively. Likely stable to downgrade to PCU today. Admission and Anticipated Discharge Date Admission Date: August 23, 2022 Subjective Patient seen and examined. Remains on low-dose Precedex. She is a bit more oriented today. She still remains lethargic. Review of Systems Review of Systems: Unobtainable due to cognitive status Physical Exam Physical Exam: VITAL SIGNS - Vital signs and nursing notes were reviewed. GENERAL - 41-year-old female appearing her stated age who is in mild respiratory distress. Altered. SKIN - Without rashes. HEAD - NC/AT. EYES - PERRL with EOMI bilaterally. Sclera anicteric. EARS - No deformities of external structures noted on gross examination bilaterally. NOSE - Midline and without cyanosis. No epistaxis or purulent drainage noted. MOUTH/OROPHARYNX - Without perioral cyanosis. Buccal mucosa pink and dry. NECK - Neck with FROM. No nuchal rigidity. LUNGS - Normal vesicular breath sounds CTA B/L. No wheezes, rales, or rhonchi appreciated. CARDIAC - RRR with S1/S2. No murmur, rubs, or gallops appreciated. ABDOMEN - Abdominal contour obese without pulsations or visible masses. BS normoactive all four quadrants. No tenderness, palpable masses, hepatosplenom egaly, or ascites noted. EXTREMITIES - No clubbing or peripheral cyanosis. No pretibial edema present. +3/5 radial and dorsalis pedis pulses palpated throughout. NEUROLOGIC -no focal neurological deficits noted. Limited exam secondary to altered mental status. Results & Data Results & Data Vital Signs (Past 12 Hours) Vital Signs Temp Pulse Pulse Resp BP BP Pulse Ox 08/25/22 08:00 08/25/22 08:00 08/25/22 08:00 112 H 08/25/22 07:00 36.8 C 98 H 20 148/96 H 99 08/25/22 04:00 37.3 C 08/25/22 01:00 130/88 08/25/22 02:00 133/86 08/25/22 04:00 122/79 08/25/22 05:00 136/88 08/25/22 06:00 141/90 H 08/25/22 06:30 112 H 10 L 98 08/25/22 06:00 106 H 23 98 08/25/22 05:30 99 H 21 96 08/25/22 05:00 92 H 23 92 08/25/22 04:30 101 H 26 H 98 08/25/22 04:00 99 H 19 98 08/25/22 03:30 101 H 17 99 08/25/22 03:00 122 H 17 98 08/25/22 02:30 102 H 20 99 08/25/22 02:00 92 H 21 100 08/25/22 01:30 95 H 21 100 08/25/22 01:00 97 H 17 77 L 08/25/22 00:30 96 H 21 97 08/25/22 04:00 36.3 C L 08/25/22 00:00 96 H 19 96 08/24/22 23:30 100 H 15 82 L 08/24/22 23:14 100 H 15 100 08/24/22 23:14 134/97 08/24/22 23:10 99 H 12 08/24/22 22:00 96 H 20 99 08/24/22 21:30 37.6 C H 103 H 23 100 08/24/22 21:00 37.5 C 104 H 21 88 L 08/24/22 21:00 134/93 08/25/22 00:10 08/25/22 00:00 95 H Pulse Ox O2 Del Method O2 Del Method 08/25/22 08:00 100 Room Air 08/25/22 08:00 Room Air 08/25/22 08:00 08/25/22 07:00 Room Air 08/25/22 04:00 08/25/22 01:00 08/25/22 02:00 08/25/22 04:00 08/25/22 05:00 08/25/22 06:00 08/25/22 06:30 08/25/22 06:00 08/25/22 05:30 08/25/22 05:00 08/25/22 04:30 08/25/22 04:00 08/25/22 03:30 08/25/22 03:00 08/25/22 02:30 08/25/22 02:00 08/25/22 01:30 08/25/22 01:00 08/25/22 00:30 08/25/22 04:00 08/25/22 00:00 08/24/22 23:30 08/24/22 23:14 08/24/22 23:14 08/24/22 23:10 08/24/22 22:00 08/24/22 21:30 08/24/22 21:00 08/24/22 21:00 08/25/22 00:10 Room Air 08/25/22 00:00 Coding Level of Care Code 52543 SUB INP/OBS CARE 3/50MIN Diagnoses DKA (diabetic ketoacidosis) E11.10 Dehydration E86.0 High anion gap metabolic acidosis E87.29 Acute metabolic encephalopathy G93.41 HTN (hypertension) I10 Anxiety F41.9 Bipolar 2 disorder F31.81 T2DM (type 2 diabetes mellitus) E11.9 Pancreatitis K85.90 Sepsis A41.9
[2022-08-25] MEDS ORDERED: POTASSIUM PHOSPHATE 30 MMOL in SODIUM CHLORIDE 0.9% 500 ML IV ONE (10:00)
[2022-08-25] MEDS ORDERED: buPROPion HCl 100 MG TABLET PO SCH (10:30)
[2022-08-25] MEDS ORDERED: NSS + 20MEQ KCL 20 MEQ/1,000 ML BAG IV SCH (10:30)
[2022-08-25] MEDS ORDERED: LANTUS PER UNIT CHARGE SC STA (10:34)
[2022-08-25] MEDS: lamoTRIgine 100 MG TAB PO SCH (10:41)
[2022-08-25 10:54] LABS: Anion Gap 8 (3-11); Blood Urea Nitrogen 3 mg/dl (6-23); Calcium 8.3 mg/dl (8.6-10.3); Carbon Dioxide 23 mmol/L (21-32); Chloride 103 mmol/L (98-107); Est GFR (African American) > 150.0 ml/min; Est GFR (Non-African American) 142.2 ml/min; Glucose 150 mg/dl (70-99(Fasting)); Phosphorus 1.6 mg/dl (2.5-4.9); Potassium 3.1 mmol/L (3.5-5.1); Sodium 134 mmol/L (136-145)
[2022-08-25] MEDS ORDERED: GLUCAGON FOR INJ 1 MG VIAL SQ PRN (10:57)
[2022-08-25] MEDS ORDERED: CARBOHYDRATES FOR HYPOGLYCEMIA PO PRN (10:57)
[2022-08-25] MEDS ORDERED: DEXTROSE 50% 50 ML SYRINGE IV PRN (10:57)
[2022-08-25] MEDS ORDERED: GLUCOSE 10 TAB/TUBE PO PRN (10:57)
[2022-08-25] MEDS ORDERED: GLUCOSE 40% GEL 15 GM TUBE PO PRN (10:57)
[2022-08-25] MEDS ORDERED: MAGNESIUM SULFATE / D5W 1 GM/100 ML BAG IV SCH (11:00)
[2022-08-25] MEDS ORDERED: lamoTRIgine 100 MG TAB PO SCH (11:26)
--- NOTE | 2022-08-25 11:30 | Pharmacy Report ---
Pharmacy Glycemic Short Note 2 - Date of Service August 25, 2022 - Glycemic Short BSG Results (Last 24 hours): 08/24/22 08/24/22 08/24/22 10:39 11:55 12:55 Glucose 218 H POC Glucose 194 H 165 H 08/24/22 08/24/22 08/24/22 14:21 14:21 14:59 Glucose Cancelled 148 H POC Glucose 145 H 08/24/22 08/24/22 08/24/22 16:19 16:59 18:25 Glucose 184 H 161 H POC Glucose 184 H 08/24/22 08/24/22 08/24/22 18:59 20:10 20:55 Glucose 179 H POC Glucose 148 H 175 H 08/24/22 08/24/22 08/25/22 23:14 23:20 00:54 Glucose 184 H POC Glucose 159 H 185 H 08/25/22 08/25/22 08/25/22 02:57 05:48 06:27 Glucose 182 H POC Glucose 198 H 171 H 08/25/22 08/25/22 08/25/22 06:56 08:56 10:21 Glucose 150 H POC Glucose 196 H 143 H 08/25/22 10:51 Glucose POC Glucose 142 H OUTPATIENT ANTIDIABETIC REGIMEN: * empagliflozin 25mg PO daily * glimepiride 2mg PO daily * Trulicity 3mg SQ weekly * HbA1C: 8.4% 08/24/22 ASSESSMENT: 08/25 * Insulin drip continues at very stable low rate of 1.3 units/hr. Dextrose- containing IVF running at rapid rate of 250 mL/hr over the last ~24 hours. Anion gap has closed and CO2 is close to normal. Diet now ordered. OK to transition off of insulin drip per Dr. Bernard. * Will initiate low dose Lantus due to low insulin infusion rate despite high D5W infusion rate. * Will initiate weight-based moderate stress Novolog at dinner * Will limit overnight checks to one due to recent encephalopathy to reduce risk of delirium 08/24 * Patient continues on insulin drip at this time, infusion rates ~1.1 unit/hr at this time. Dextrose containing IVF's continue. * Although AG and Bicarb have improved since presentation, AG has not yet normalized and bicarb remains less than 15. Patient's mental status has not fully improved. Patient remains NPO * Insulin drip and dextrose containing IVF's will continue at this time as she is not ready to transition to a SQ regimen. 08/23 * Patient is a 41 year old female with history of DM2 who presented with altered mental status in setting of DKA. Initial labs: pH-7.02, AG-24, bicarb-5, BSG- 287mg/dL. Initiated on insulin infusion per DKA protocol. Pharmacy consulted to assist with management. * NPO. D5NS w/ 20mEQ KCl @ 125ml/hr given BSG within goal range. Continue insulin drip until gap closed, bicarb >15, and mentating appropriately. HbA1C pending for tomorrow. Novolog ACHS carb coverage only if started on a diet. PLAN FOR INPATIENT GLYCEMIC CONTROL: * Hold outpatient oral diabetes medications * Basal insulin * Lantus 10 units SC x1 now with additional 0-10 units at HS based on BSG * Stop insulin drip at 1630 (or as early as 1330 if insulin drip calculator notes to hold drip) * * Bolus insulin * NovoLog per scale ACHS or Q6hrs while NPO * Goal Range: Low 120 mg/dL - High 150 mg/dL * Correction Factor: 35 mg/dL/unit * Nutritional / Prandial insulin per carb ratio of 1 unit per 11 grams CHO consumed
[2022-08-25] MEDS: buPROPion SR 100 MG TABCR PO SCH (11:34)
[2022-08-25] MEDS ORDERED: POTASSIUM CHLORIDE 20 MEQ/15 ML UDC PO STA (12:23)
--- NOTE | 2022-08-25 12:24 | Hospitalist Progress Note ---
Date of Service August 25, 2022 Assessment & Plan (1) Acute metabolic encephalopathy: (2) DKA (diabetic ketoacidosis): (3) High anion gap metabolic acidosis: (4) Dehydration: (5) Acute pancreatitis: Plan This is a 41-year-old female with significant past medical history of T2DM, HTN, chronic pain syndrome, bipolar 2 disorder, tobacco use who presents to ED with altered mental status. She was found to be in severe DKA on admission. Admitted to ICU for further care Acute metabolic encephalopathyresolved DKAresolved High anion gap metabolic acidosis Acute pancreatitis Possible sepsis Patient is a 41-year-old female with past medical history of type 2 diabetes mellitus who presented to the ED with altered mental status Labs from admission reviewed; consistent with metabolic acidosis secondary to DKA. Bicarb of 12 and anion gap is 18 Lipase significantly elevated Labs reviewed today; anion gap closed and bicarb of 23. Has low mag, potassium and phosphorus. Urine toxicology positive for MDMA; unsure if patient has history of use of MDMA or is a false positive due to bupropion Blood culture negative till date HbA1c of 8.2. MRI brain reviewed no acute abnormality Started on diet. Will overlap subcu insulin with IV. 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 She has been afebrile since the start of IV antibiotics and acyclovir. will obtain lumbar puncture; will send studies to rule out meningitis/encephalitis. PT OT ordered Chronic conditions; Hyperlipidemiacontinue Lipitor Bipolar disordercontinue on sertraline, bupropion DVT prophylaxis: Lovenox Dispo: Downgraded to PCU. PCP: True Gibson Full code Time spent evaluating patient, direct bedside care, chart review, placing orders, interpretation of diagnostic studies, discussion with consultants, patient, and family members, as well as other required patient management activities is 60 minutes Please note the above document was generated using voice recognition software. It may contain grammatical, syntax or spelling errors. Any formal questions or concerns about the content, text or information contained within the body of this dictation should be directly addressed to the provider for clarification Admission and Anticipated Discharge Date Admission Date: August 23, 2022 Subjective Patient seen and examined at bedside. She is more oriented today. She is answering question appropriately. Off Precedex Review of Systems Review of Systems: All systems reviewed & are unremarkable except as noted in Subjective Physical Exam Physical Exam: Constitutional: Awake alert oriented x3; not in distress. Respiratory: normal respiratory effort, lungs clear to auscultation, no wheeze, rales, rhonchi. Normal insp/exp effort, no accessory muscle use Cardiovascular: RRR, no murmur, no edema Vessels: no JVD or carotid bruit Chest: normal inspection of chest Abdomen: normal bowel sounds, soft, nontender, no hepatosplenomegaly Musculoskeletal: no cyanosis or clubbing, extremities motor strength 5/5 Skin: no rashes, warm and dry normal turgor Neurologic: PERRL, EOMI, accommodation nl, no face palsy, no dysarthria CN's II- XI intact bilaterally and moves all extremities Psychiatric: A+Ox3, euthymic affect Results & Data Results & Data Vital Signs (Past 12 Hours) Vital Signs Temp Pulse Pulse Resp BP BP Pulse Ox 08/25/22 08:00 112 H 08/25/22 08:00 08/25/22 08:00 08/25/22 08:00 112 H 08/25/22 07:00 36.8 C 98 H 20 148/96 H 99 08/25/22 04:00 37.3 C 08/25/22 01:00 130/88 08/25/22 02:00 133/86 08/25/22 04:00 122/79 08/25/22 05:00 136/88 08/25/22 06:00 141/90 H 08/25/22 06:30 112 H 10 L 98 08/25/22 06:00 106 H 23 98 08/25/22 05:30 99 H 21 96 08/25/22 05:00 92 H 23 92 08/25/22 04:30 101 H 26 H 98 08/25/22 04:00 99 H 19 98 08/25/22 03:30 101 H 17 99 08/25/22 03:00 122 H 17 98 08/25/22 02:30 102 H 20 99 08/25/22 02:00 92 H 21 100 08/25/22 01:30 95 H 21 100 08/25/22 01:00 97 H 17 77 L 08/25/22 00:30 96 H 21 97 08/25/22 04:00 36.3 C L Pulse Ox O2 Del Method O2 Del Method 08/25/22 08:00 08/25/22 08:00 100 Room Air 08/25/22 08:00 Room Air 08/25/22 08:00 08/25/22 07:00 Room Air 08/25/22 04:00 08/25/22 01:00 08/25/22 02:00 08/25/22 04:00 08/25/22 05:00 08/25/22 06:00 08/25/22 06:30 08/25/22 06:00 08/25/22 05:30 08/25/22 05:00 08/25/22 04:30 08/25/22 04:00 08/25/22 03:30 08/25/22 03:00 08/25/22 02:30 08/25/22 02:00 08/25/22 01:30 08/25/22 01:00 08/25/22 00:30 08/25/22 04:00 Laboratory Results Laboratory Results WBC 9.18 K/ul (4.8-10.8) 08/24/22 10:39 RBC 5.00 M/uL (4.20-5.40) 08/24/22 10:39 Hgb 14.7 g/dl (12.0-16.0) 08/24/22 10:39 Hct 40.2 % (37.0-47.0) 08/24/22 10:39 MCV 80.4 fL (80.0-100.0) D 08/24/22 10:39 MCH 29.4 pg (25.0-34.0) 08/24/22 10:39 MCHC 36.6 g/dL (32.0-36.0) H 08/24/22 10:39 RDW Std Deviation 40.7 fL (36.4-46.3) 08/24/22 10:39 RDW Coeff of Kishan 14.2 % (11.5-14.5) 08/24/22 10:39 Plt Count 273 K/uL (130-400) 08/24/22 10:39 MPV 9.5 fL (9.4-12.4) 08/24/22 10:39 Immature Gran % (Auto) 0.5 % 08/24/22 10:39 Neut % (Auto) 86.6 % 08/24/22 10:39 Lymph % (Auto) 5.7 % 08/24/22 10:39 Glenn % (Auto) 6.9 % 08/24/22 10:39 Eos % (Auto) 0.1 % 08/24/22 10:39 Baso % (Auto) 0.2 % 08/24/22 10:39 Neut # (Auto) 7.95 K/uL (1.40-6.50) H 08/24/22 10:39 Lymph # (Auto) 0.52 K/uL (1.2-3.4) L 08/24/22 10:39 Glenn # (Auto) 0.63 K/uL (0.11-0.59) H 08/24/22 10:39 Eos # (Auto) 0.01 K/uL (0-0.50) 08/24/22 10:39 Baso # (Auto) 0.02 K/uL (0-0.2) 08/24/22 10:39 Immature Gran # (Auto) 0.05 K/uL (0.01-0.20) 08/24/22 10:39 Platelet Estimate Normal (Normal) 08/24/22 10:39 PT 10.5 Seconds (9.0-12.0) 08/23/22 10:17 INR 1.0 (0.9-1.1) 08/23/22 10:17 APTT 27.1 Seconds (21.0-31.0) 08/23/22 10:17 PTT Ratio 1.0 08/23/22 10:17 ABG pH 7.02 (7.35-7.45) L* 08/23/22 12:37 ABG pCO2 11 mmHg (35-46) L 08/23/22 12:37 ABG pO2 136 mmHg (80-95) H 08/23/22 12:37 ABG HCO3 3 mmol/L (19-24) L 08/23/22 12:37 ABG O2 Saturation 99.8 % (90-95) H 08/23/22 12:37 ABG Base Excess -26.2 mEq/L (-9-1.8) L 08/23/22 12:37 North Test Pos (Pos) 08/23/22 12:37 VBG pH 7.38 (7.36-7.41) 08/24/22 14:21 VBG pCO2 24 mmHg (38-50) L 08/23/22 10:17 VBG pO2 36 mmHg 08/23/22 10:17 VBG HCO3 mmol/L 08/23/22 10:17 VBG O2 Saturation 65.2 % 08/23/22 10:17 VBG Base Excess mEq/L 08/23/22 10:17 Oxygen Given ROOM AIR 08/23/22 12:37 Sodium 134 mmol/L (136-145) L 08/25/22 10:21 Potassium 3.1 mmol/L (3.5-5.1) L 08/25/22 10:21 Chloride 103 mmol/L (98-107) 08/25/22 10:21 Carbon Dioxide 23 mmol/L (21-32) 08/25/22 10:21 Anion Gap 8 (3-11) 08/25/22 10:21 BUN 3 mg/dl (6-23) L 08/25/22 10:21 Creatinine 0.30 mg/dl (0.6-1.2) L 08/25/22 10:21 Est Cr Clr Drug Dosing 214.0 ml/min 08/25/22 10:21 Est GFR ( Amer) > 150.0 ml/min 08/25/22 10:21 Est GFR (Non-Af Amer) 142.2 ml/min 08/25/22 10:21 BUN/Creatinine Ratio 10.0 (10-20) 08/25/22 10:21 Glucose 150 mg/dl (70-99(Fasting)) H 08/25/22 10:21 POC Glucose 142 mg/dl (70-99) H 08/25/22 10:51 Estimat Average Glucose 194 mg/dl 08/24/22 01:23 Hemoglobin A1c 8.4 % (4.5-5.6) H 08/24/22 01:23 Lactate 1.3 mmol/L (0.4-2.0) 08/23/22 11:20 Calcium 8.3 mg/dl (8.6-10.3) L 08/25/22 10:21 Phosphorus 1.6 mg/dl (2.5-4.9) L 08/25/22 10:21 Magnesium 1.5 mg/dl (1.7-2.4) L 08/25/22 06:27 Total Bilirubin 0.2 mg/dl (0.2-1.0) 08/23/22 10:17 Direct Bilirubin 0.0 mg/dl (0-0.2) 08/23/22 10:17 AST 10 U/L (13-39) L 08/23/22 10:17 ALT 10 U/L (7-52) 08/23/22 10:17 Alkaline Phosphatase 90 U/L (34-104) 08/23/22 10:17 Ammonia 44.0 umol/L (18-72) 08/23/22 11:20 Total Creatine Kinase 59 U/L (26-192) 08/24/22 16:19 Troponin I High Sens 6.8 pg/ml (0-14) 08/23/22 10:17 Total Protein 7.7 gm/dl (6.0-8.3) 08/23/22 10:17 Albumin 4.2 gm/dl (3.4-5.0) 08/23/22 10:17 Lipase 2021 U/L (11-82) H 08/23/22 14:32 Procalcitonin 0.34 ng/ml (0-0.5) 08/23/22 10:17 Urine Color Yellow 08/23/22 10:15 Urine Appearance Clear (Clear) 08/23/22 10:15 Urine pH 6.0 (4.5-7.5) 08/23/22 10:15 Ur Specific [place] 1.028 (1.000-1.030) 08/23/22 10:15 Urine Protein 1+ (Negative) H 08/23/22 10:15 Urine Glucose (UA) 3+ (Negative) H 08/23/22 10:15 Urine Ketones 4+ (Negative) H 08/23/22 10:15 Urine Blood Negative (Negative) 08/23/22 10:15 Urine Nitrite Negative (Negative) 08/23/22 10:15 Urine Bilirubin Negative (Negative) 08/23/22 10:15 Urine Urobilinogen Negative (Negative) 08/23/22 10:15 Ur Leukocyte Esterase Negative (Negative) 08/23/22 10:15 Urine WBC (Auto) 1-5 /hpf (0-5) 08/23/22 10:15 Urine RBC (Auto) 0-4 /hpf (0-4) 08/23/22 10:15 U Hyaline Cast (Auto) 5-10 /lpf (0-5) H 08/23/22 10:15 U Epithel Cells (Auto) >30 /lpf (0-5) H 08/23/22 10:15 Urine Bacteria (Auto) Negative (Negative) 08/23/22 10:15 Nasal Screen MRSA (PCR) Negative (Negative) 08/23/22 13:50 Urine Opiates Screen Neg (Neg) 08/23/22 10:15 Ur Methadone, Qual Neg (Neg) 08/23/22 10:15 Urine Barbiturates Neg (Neg) 08/23/22 10:15 Ur Phencyclidine (PCP) Neg (Neg) 08/23/22 10:15 U Amphetamin/Meth Scrn Neg (Neg) 08/23/22 10:15 MDMA (Ecstasy) Screen Pos (Neg) H 08/23/22 10:15 U Benzodiazepines Scrn Neg (Neg) 08/23/22 10:15 Ur Cocaine Metabolite Neg (Neg) 08/23/22 10:15 U Marijuana (THC) Screen Neg (Neg) 08/23/22 10:15 Ethyl Alcohol mg/dL < 10.0 mg/dl (<10.0) 08/23/22 11:20 SARS-CoV-2, RNA, NAAT NEGATIVE (NEGATIVE) 08/23/22 10:[address] 08/23/22 10:14 CT head/brain wo con CLINICAL HISTORY: 41 years-old Female with altered. Acutely altered mental status TECHNIQUE: Multiple axial CT images of the head were obtained without contrast. A dose lowering technique was utilized adhering to the principles of ALARA. CT DOSE: 625.80 mGy.cm COMPARISON: None. FINDINGS: No acute intracranial hemorrhage, midline shift, intracranial mass, hydrocephalus, territorial ischemia or abnormal extra-axial collection. The calvarium is intact. The paranasal sinuses, mastoid air cells, and middle ear cavities are clear. IMPRESSION: No acute intracranial abnormality. ACT 112: Negative or not required by law. The above report was generated using voice recognition software. It may contain grammatical, syntax or spelling errors. Electronically signed by: Louie Ayala M.D. 08/23/2022 1:37 PM Abdomen Ultrasound 08/23/22 15:48 ABDOMINAL ULTRASOUND, RIGHT UPPER QUADRANT HISTORY: Elevated LFTs elevated lipase, AMS, DKA. COMPARISON: None. FINDINGS: Pancreas: The pancreas is obscured by bowel gas. Liver: Unremarkable. Gallbladder: No gallbladder wall thickening. No gallstones. CBD: 0.37 Right kidney: Obscured by bowel gas Limited study secondary to portable study and patient positioning. IMPRESSION: Limited study. No acute abnormality identified. ACT 112: Negative or not required by law. Electronically signed by: Louie Ayala M.D. 08/23/2022 5:44 PM Chest X-Ray 08/24/22 12:50 XR chest 1V portable CLINICAL HISTORY: rij cvl COMPARISON STUDY: Chest radiograph August 23, 2022. FINDINGS: There is no pneumothorax following placement of a right internal jugular central line. Catheter tip projects over the right atrium. Lung volumes are normal. Lungs are clear. There is no pleural effusion. Cardiac size is normal. Mediastinal contours are normal. There is no evidence for pulmonary edema. IMPRESSION: 1. No pneumothorax following placement of a right internal jugular central line. 2. No acute cardiopulmonary findings. ACT 112: Negative or not required by law. Electronically signed by: Massimo Meneses M.D. 08/24/2022 1:04 PM Brain MRI 08/24/22 16:07 Exam(s): MRI HEAD W/WO Contrast IV Amt: 6.5 GADAVIST EXAM: MR Head Without and With Intravenous Contrast CLINICAL HISTORY: Reason for exam: Severe encephalopathy. TECHNIQUE: Magnetic resonance images of the head/brain without and with intravenous contrast in multiple planes. CONTRAST: Patient received 6.5 GADAVIST of IV contrast COMPARISON: No relevant prior studies available. FINDINGS: Brain: Generalized atrophy for patient's age. No mass. No hemorrhage. No acute infarct. Ventricles: Unremarkable. No ventriculomegaly. Bones/joints: Unremarkable. Sinuses: Unremarkable as visualized. No acute sinusitis. Mastoid air cells: Unremarkable as visualized. No mastoid effusion. Orbits: Unremarkable as visualized. IMPRESSION: Generalized atrophy for patient's age. Electronically signed by: Ariel Harden M.D. 08/24/22 23:35 PM
[2022-08-25] MEDS: ATOMOXETINE HCL 25 MG CAPSULE PO SCH (12:27)
[2022-08-25] MEDS: SERTRALINE HCL 100 MG TABLET PO SCH (12:28)
[2022-08-25] MEDS: ATORVASTATIN 20 MG TAB PO SCH (12:28)
[2022-08-25] MEDS: POTASSIUM CHLORIDE / WTR 20 MEQ/100 ML PLCT IV SCH ×2 (13:06→15:27)
[2022-08-25] MEDS: INSULIN REGULAR 250 UNITS in SODIUM CHLORIDE 0.9% 247.5 ML IV SCH (14:03)
[2022-08-25] MEDS: SODIUM CHLORIDE 0.9% 1000ML 1,000 ML IV SCH (14:04)
--- NOTE | 2022-08-25 14:30 | Fluoroscopy Report ---
LUMBAR PUNCTURE UNDER FLUOROSCOPY CLINICAL HISTORY: Sepsis; Evaluate for meningitis PROCEDURE: Procedure and risks were explained. Informed consent was obtained. A final timeout was com pleted. The patient was placed prone on the fluoroscopic exam table. The lower lumbar region was prep ped and draped in sterile fashion. 1% lidocaine was utilized for skin anesthesia. Utilizing fluoroscopic guidance, a 22-gauge spinal needle was advanced into the intrathecal space at the L3-4 disc space level. One spot image was obtained. Approximately 8 mL of clear CSF fluid was rem mackenzie and sent to the lab. The needle was removed and Band-Aid applied. The patient tolerated the proc edure well. Vital signs will be monitored postprocedure. Total fluoroscopy time 23 seconds. DAP is 3.25 mcGy/m2. IMPRESSION: Lumbar puncture as above. Performed, dictated, and signed by Alexander Weaver PA-C; to be co-signed by Dr. Francisco Shirley. Electronically signed by: Francisco Shirley M.D. 08/25/2022 2:54 PM
[2022-08-25 15:06] LABS: Total Protein CSF 47.3 mg/dl (15-45)
--- NOTE | 2022-08-25 15:06 | Pharmacy Report ---
Pharmacy PK ABX Note - Date of Service August 25, 2022 - Assessment and Plan Assessment * 41 year old F receiving ampicillin, ceftriaxone, vancomycin, and acyclovir for treatment of possible meningitis. * SCr with notable trend down 1.14-0.62-0.27 mg/dL and also very rapidly clearing potassium (aggressive repletion with minimal impact to serum level). Concern for increased vancomycin clearance as well. * Rapid clearance very likely at this time, however, may be transient. Will n eed to dose more aggressively now, but may also have rapid changes in clearance which necessitates close monitoring of levels * Vancomycin level obtained today lower than originally anticipated, but not surprising given clinical status above. Will increase vancomycin and order repeat random level in ~24 hours Plan Vancomycin * Increase to 1750 mg IV q12h * Random level ordered 8 hours after 2nd dose of above - scheduled for tomorrow at 1100 Pharmacy will continue to follow and will adjust dose/frequency as necessary. Thank you. Pharmacy has transitioned to AUC monitoring for vancomycin. AUC/JASE is the preferred PK/PD target and is associated with decreased risk of nephrotoxicity compared to traditional trough targets.
[2022-08-25 15:14] LABS: Appearance CSF Clear; CSF Count Tube # 3; CSF Xanthrochromic No xanthochromia; Color CSF Colorless
[2022-08-25] MEDS: VANCOMYCIN HCL 1,750 MG in SODIUM CHLORIDE 0.9% 500 ML IV SCH (15:27)
[2022-08-25 16:08] LABS: Cryptococcus neoformans/ga PCR Not Detected (NotDetected); Cytomegalovirus PCR Not Detected (NotDetected); Enterovirus PCR Not Detected (NotDetected); Escherichia coli K1 PCR Not Detected (NotDetected); Haemophilius influenzae PCR Not Detected (NotDetected); Herpes Simplex Virus 1 PCR Not Detected (NotDetected); Herpes Simplex Virus 2 PCR Not Detected (NotDetected); Human Herpes Virus 6 PCR Not Detected (NotDetected); Human Parechovirus PCR Not Detected (NotDetected); Listeria monocytogenes PCR Not Detected (NotDetected); Neisseria meningitidis PCR Not Detected (NotDetected); Streptococcus agalactiae PCR Not Detected (NotDetected); Streptococcus pneumoniae PCR Not Detected (NotDetected); Varicella Zoster Virus PCR Not Detected (NotDetected)
[2022-08-25] MEDS: ALUMINUM/MAGNESIUM SUSP 30 ML UDC PO PRN (17:32)
[2022-08-25] MEDS: ENOXAPARIN INJ 40 MG/0.4 ML SYR SQ SCH (19:53)
[2022-08-25] MEDS ORDERED: LANTUS PER UNIT CHARGE SC ONE (21:00)
[2022-08-26] MEDS: VANCOMYCIN HCL 1,750 MG in SODIUM CHLORIDE 0.9% 500 ML IV SCH (04:12)
[2022-08-26] MEDS: SODIUM CHLORIDE 0.9% 1000ML 1,000 ML IV SCH (04:12)
[2022-08-26] MEDS: AMPICILLIN 2,000 MG in SODIUM CHLOR 0.9% AD-VAN 100 ML IV SCH ×2 (04:19→08:36)
[2022-08-26 04:44] LABS: Anion Gap 10 (3-11); BUN Creatinine Ratio 14.7 (10-20); Blood Urea Nitrogen 5 mg/dl (6-23); Calcium 8.4 mg/dl (8.6-10.3); Carbon Dioxide 21 mmol/L (21-32); Chloride 103 mmol/L (98-107); Creatinine Clr Calc Pharmacy 188.8 ml/min; Est GFR (African American) > 150.0 ml/min; Est GFR (Non-African American) 136.5 ml/min; Glucose 122 mg/dl (70-99(Fasting)); Magnesium 2.1 mg/dl (1.7-2.4); Phosphorus 2.3 mg/dl (2.5-4.9); Potassium 3.7 mmol/L (3.5-5.1); Sodium 134 mmol/L (136-145)
[2022-08-26] MEDS: cefTRIAXone SODIUM 2,000 MG in DEXTROSE 5% 50 ML IV SCH (05:41)
[2022-08-26 07:07] LABS: Basophils # (auto) 0.01 K/uL (0-0.2); Basophils % (auto) 0.2 %; Eosinophils # (auto) 0.03 K/uL (0-0.50); Eosinophils % (auto) 0.6 %; Hematocrit (blood only) 29.9 % (37.0-47.0); Hemoglobin 10.9 g/dl (12.0-16.0); Immature Granulocytes # (auto) 0.04 K/uL (0.01-0.20); Immature Granulocytes % (auto) 0.8 %; Lymphocytes # (auto) 1.04 K/uL (1.2-3.4); Lymphocytes % (auto) 19.5 %; Mean Corpuscular Hemoglobin 29.8 pg (25.0-34.0); Mean Corpuscular Hgb Conc 36.5 g/dL (32.0-36.0); Mean Corpuscular Volume 81.7 fL (80.0-100.0); Mean Platelet Volume 9.5 fL (9.4-12.4); Monocytes # (auto) 0.43 K/uL (0.11-0.59); Monocytes % (auto) 8.1 %; Neutrophils # (auto) 3.78 K/uL (1.40-6.50); Neutrophils % (auto) 70.8 %; Platelet Count 162 K/uL (130-400); RDW Coefficient of Variation 14.1 % (11.5-14.5); RDW Standard Deviation 41.3 fL (36.4-46.3); Red Blood Count 3.66 M/uL (4.20-5.40); White Blood Count 5.33 K/ul (4.8-10.8)
[2022-08-26] MEDS: ALUMINUM/MAGNESIUM SUSP 30 ML UDC PO PRN (07:29)
[2022-08-26] MEDS: FAMOTIDINE 20 MG in SYRINGE 3 ML IV SCH (08:35)
[2022-08-26] MEDS: INSULIN ASPART PER UNIT CHARGE SC SCH ×2 (08:35→12:02)
[2022-08-26] MEDS: ATORVASTATIN 20 MG TAB PO SCH (08:37)
[2022-08-26] MEDS: lamoTRIgine 100 MG TAB PO SCH (08:37)
[2022-08-26] MEDS: buPROPion SR 100 MG TABCR PO SCH (08:37)
[2022-08-26] MEDS: SERTRALINE HCL 100 MG TABLET PO SCH (08:38)
[2022-08-26] MEDS: ATOMOXETINE HCL 25 MG CAPSULE PO SCH (08:38)
[2022-08-26] MEDS ORDERED: LANTUS PER UNIT CHARGE SC SCH (09:00)
--- NOTE | 2022-08-26 12:28 | Discharge Summary ---
Date of Service August 26, 2022 Admission HPI Per Admitting Provider This is a 41-year-old female with significant past medical history of T2DM, HTN, chronic pain syndrome, bipolar 2 disorder, tobacco use who presents to ED with altered mental status. History unobtainable from patient due to cognition. is at bedside and states approximately 1 month ago she was admitted to [facility] in the ICU for DKA. At that time symptoms started abruptly with vomiting, weakness, ill feeling and patient then developed altered mental status. At that point time he was discharged on insulin. Her A1c during hospitalization was 8.2. According to hospital follow-up patient was unable to get coverage for insulin and therefore did not pick it up. She also apparently has been having difficulty with oral intake. She followed up with PCP who recommended discontinuing insulin and continuing her oral regiment of Jardiance, glipizide and Trulicity. EPIC records reviewed. She follows with [facility] pharmacy for glycemic management. Principal Diagnosis Acute metabolic encephalopathyresolved DKAresolved High anion gap metabolic acidosis Acute pancreatitis Possible sepsis Discharge Exam Constitutional: Awake alert oriented x3; not in distress. Respiratory: normal respiratory effort, lungs clear to auscultation, no wheeze, rales, rhonchi. Normal insp/exp effort, no accessory muscle use Cardiovascular: RRR, no murmur, no edema Vessels: no JVD or carotid bruit Chest: normal inspection of chest Abdomen: normal bowel sounds, soft, nontender, no hepatosplenomegaly Musculoskeletal: no cyanosis or clubbing, extremities motor strength 5/5 Skin: no rashes, warm and dry normal turgor Neurologic: PERRL, EOMI, accommodation nl, no face palsy, no dysarthria CN's II- XI intact bilaterally and moves all extremities Psychiatric: A+Ox3, euthymic affect Discharge Data Allergies Allergy/AdvReac Type Severity Reaction Status Date / Time No Known Allergies Allergy Unverified 08/23/22 15:41 Consultations 08/23/22 11:35 ED Decision to Admit Stat 08/23/22 13:56 Consult Tool Grinder Operator External Routine Ordered Studies 08/23/22 10:14 CT head/brain wo con Stat 08/23/22 15:48 US abdomen limited Urgent 08/24/22 16:07 MRI Brain [MR brain wo/w con] Stat 06/09/23 12:54 IR lumbar puncture diagnostic Routine Hospital Course (1) Acute metabolic encephalopathy: (2) DKA (diabetic ketoacidosis): (3) High anion gap metabolic acidosis: (4) Dehydration: (5) Acute pancreatitis: Plan Acute metabolic encephalopathyresolved DKAresolved High anion gap metabolic acidosis Acute pancreatitis Possible sepsis Patient is a 41-year-old female with significant past medical history of T2DM, HTN, chronic pain syndrome, bipolar 2 disorder, tobacco use who presents to ED with altered mental status. She was found to be in severe DKA on admission. Labs from admission consistent with metabolic acidosis secondary to DKA. Bicarb of 12 and anion gap is 18 Lipase significantly elevated Admitted to ICU for further care Patient was started on insulin drip and IV hydration. Due to altered mental status, started on empiric ceftriaxone, vancomycin, ampicillin and acyclovir for concern of encephalitis/meningitis. MRI brain reviewed no acute abnormality. Lumbar puncture did not show significant signs of infection. Patient improved with IV hydration and insulin treatment; mentation was back to baseline. A1c was 8.2%. Diabetic education was done. Patient was discharged home on 12 units of Basaglar once daily. Patient to undergo work-up for autoantibodies as outpatient. Stop Jardiance due to episode of pancreatitis. Glimepiride stopped as well. Trulicity kept on hold. Patient to follow-up with her primary care doctor. Please note the above document was generated using voice recognition software. It may contain grammatical, syntax or spelling errors. Any formal questions or concerns about the content, text or information contained within the body of this dictation should be directly addressed to the provider for clarification Total Time Total Time Spent Total Time Spent (In Minutes): 45 Total Time Includes: Examination of the Patient, Discharge Planning, Medication Reconciliation, Communication With Other Providers and Other Discharge Plan Discharge Items Patient Disposition: Home - Self-Care Reason For Visit: DKA Discharge Diagnosis: Acute metabolic encephalopathyresolved DKAresolved High anion gap metabolic acidosis Acute pancreatitis Possible sepsis Condition on Discharge: Serious Activity: Resume your previous activity Non-emergency contact: Primary Care Provider Call non-emergency contact if: you have any medication questions and your symptoms worsen Follow-up/Referrals: Damaris Jeffers MD [Primary Care Provider] - Diet: Regular Addtl Attending Provider Instructions: You were admitted here with diabetic ketoacidosis. The following medication changes are made: 1) Stop taking Jardiance indefinitely. 2) Stop taking glimepiride 3) Hold Trulicity till you see Endocrinology 3) You are restarted on Basaglar 12 units in the morning. Check your fasting bl ood glucose first thing in the morning. The fasting glucose goal is between 90 to 130 mg/dl. Increase the dose of the insulin by 2 units every 3 days until you reach the goal. Currently, you are not started on short acting any insulin(mealtime insulin). Please follow-up with your primary care doctor. Obtain referral for endocrinology. You will need following lab work done that will help guide the treatment. 1) insulin autoantibody 2) GAD65 3) IA2 antibody 4) zinc transporter 8 antibody Please follow diabetic diet. Please watch out for symptoms of hypoglycemia. Pending Studies at Discharge: No Stand-Alone Forms: My [facility] [employer], Smoking Cessation Medications and DC Order Prescriptions: New insulin glargine [Basaglar KwikPen U-100 Insulin] 100 unit/mL (3 mL) insulin pen 12 unit subcut DAILY Qty: 15 0RF Continued atorvastatin 20 mg tablet 20 mg PO DAILY lamotrigine 200 mg tablet 200 mg PO DAILY sertraline 100 mg tablet 300 mg PO DAILY levonorgestrel-ethinyl estrad [Altavera (28)] 0.15-0.03 mg tablet 1 tab PO DAILY bupropion HCl 200 mg tablet sustained-release 12 hr 200 mg PO DAILY atomoxetine 100 mg capsule 100 mg PO DAILY Held Trulicity 3 mg/0.5 mL pen injector 3 mg SUBCUT WK Hold Instructions: Resume on 09/15/22. 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
[2022-08-27 13:43] LABS: MDA negative; MDEA negative; MDMA (Ecstasy) Urine, Confirm negative
== END 2022-08-26 12:54 | disposition home or self-care (01) | DRG 637 ==
LOC: ED 09:51 → 1E 11:31 → SUATTDRO 11:31 → 1E 13:56